=== PATIENT | female | born 1975 | race Caucasian/White ===

== ENCOUNTER 2018-12-27 23:26 | Emergency (ER) | payer SELFPAY ==
[2018-12-27 23:31] VITALS: BP 151/83; PULSE 87; RESP 16; TEMP 37; O2SAT 98
--- NOTE | 2018-12-27 23:45 | ED.GENADUL_ITS ---
Discharge Plan Disposition Patient Disposition: HOME Condition: Improving Discharge Details Chief Complaint: PsychEval Clinical Impression: Alcohol intoxication Primary Care Provider: Giovana Patel ED Provider: Mitch Quintana Home Meds and New Rx's Prescriptions: Continued trazodone 50 MG tablet 50 mg PO HS RF: 0 topiramate [Topamax] 25 MG tablet 50 mg PO BID RF: 0 omeprazole [Prilosec] 20 MG capsule,delayed release(DR/EC) 20 mg PO DAILY RF: 0 gabapentin 100 MG capsule 100 mg PO TID RF: 0 cetirizine [Zyrtec] 10 MG tablet,chewable 10 mg PO DAILY RF: 0 duloxetine [Cymbalta] 30 MG capsule,delayed release(DR/EC) 60 mg PO DAILY RF: 0 oxycodone [OxyContin] 20 MG tablet,oral only,ext.rel.12 hr 20 mg PO Q12H PRN RF: 0 SEVEN KETO DAILY RF: 0 tramadol 50 MG tablet 50 mg PO HS PRNRF: 0 bupropion HCl 100 MG tablet extended release 12 hr 100 mg PO DAILY RF: 0 bupropion HCl 100 MG tablet 100 mg PO DAILY RF: 0 medroxyprogesterone 150 MG/ML suspension 150 mg IM Q3M RF: 0 norethindrone acetate 5 MG tablet 5 mg PO . DIRECTED Qty: 50 RF: 0 Discharge Instructions Instructions: Alcohol Intoxication (ED) Additional Instructions: You are medically stable for discharge from the emergency department family member. Follow-up with [facility] human services tomorrow. Return for any acute concern Medical Decision Making 43-year-old female brought to the emerge department by state police officers. Her daughter had called him when the patient was intoxicated and making statements of wanting to self-harm. She states to me she had a great deal of anxiety and stress and her mood remains depressed. She admits both alcohol and marijuana use today. She is afebrile and well-appearing. She is noted to have blood pressure 151/83. Medical screening examination including breath alcohol testing performed. Alcohol level was 0.44. Patient seen by mental health screener. States she is no longer having thoughts of harming herself. Plan for outpatient safety was arranged and the patient was discharged home with her daughter. HPI General Mode of arrival: ambulatory . Date/Time Provider Initiated Documentation: 12/27/18 23:41 . Limitations to Documentation: no limitations . Information obtained by: patient . History of Present Illness 43 year old F presents to the emergency department with the chief complaint of Suicidal and intoxicated, described as moderate, Quality is described as constant, Patient started experiencing this hour(s) and it has been constant. No relieving factors improve symptom(s), No exacerbating factors reported . Patient notes no other symptoms.. Patient did receive the following treatments prior to arrival, none Related Data Home Medications Medication Instructions Recorded Confirmed Seven Keto DAILY 05/04/13 cetirizine [Zyrtec] 10 mg PO DAILY tab-cap 05/04/13 03/15/16 duloxetine [Cymbalta] 60 mg PO DAILY tab-cap 05/04/13 03/15/16 gabapentin 100 mg PO TID 05/04/13 omeprazole [Prilosec] 20 mg PO DAILY tab-cap 05/04/13 03/15/16 oxycodone [OxyContin] 20 mg PO Q12H PRN tab-cap 05/04/13 topiramate [Topamax] 50 mg PO BID tab-cap 05/04/13 03/15/16 trazodone 50 mg PO HS tab-cap 05/04/13 03/15/16 bupropion HCl 100 mg PO DAILY 03/15/16 03/15/16 bupropion HCl 100 mg PO DAILY 03/15/16 03/15/16 medroxyprogesterone 150 mg IM Q3M 03/15/16 03/15/16 norethindrone acetate 5 mg PO . DIRECTED #50 tab 03/15/16 tramadol 50 mg PO HS PRN 03/15/16 03/15/16 Previous Rx's Medication Instructions Recorded norethindrone acetate 5 mg PO . DIRECTED #50 tab 03/15/16 Allergies Allergy/AdvReac Type Severity Reaction Status Date / Time NSAIDS (Non-Steroidal Allergy Intermediate Unverified 03/15/16 10:38 Anti-Inflamma General Stated Complaint: PsychEval ESTRELLA: 2 Review of Systems Review of Systems 6 systems reviewed and otherwise negative PFSH Social History Smoking/Tobacco Use Status: Current every day Tobacco Type: cigarettes Alcohol Intake: current Alcohol type: other Drug use: Never Substance use type: former substance user and marijuana Details: first time drinking in month. Additional Social history: wants to hurt self. Exam Narrative Exam Narrative: GEN: awake, alert, interactive. Odor of alcohol HEAD: Normocephalic, atraumatic ENT: Mucous membranes moist, oropharynx unremarkable, External ear exam unremarkable EYES: PERRL, EOMI NECK: Full ROM, no DINORA, no menigismus CHEST/RESP: Nontender, clear to auscultation bilateral, no wheeze/rhonchi/rales CARDIOVASCULAR: RRR, no murmur, rub klarissa. 2+ Rad pulse bilateral ABDOMEN: Soft, nontender, no mass. +Bowel sounds EXT: Full ROM, no edema, no rash Neuro: Grossly normal neurologic exam, conversant, interactive. Psych: Speech fluent, thoughts congruent, affect anxious Course Vital Signs Temperature 37.0 C 12/27/18 23:31 Pulse 87 12/27/18 23:31 Respiratory Rate 16 12/27/18 23:31 Blood Pressure 151/83 H 12/27/18 23:31 Pulse Oximetry 98 12/27/18 23:31 Temperature 37.0 C 12/27/18 23:31 Temperature Source Temporal Artery Scan 12/27/18 23:31 Pulse 87 12/27/18 23:31 Respiratory Rate 16 12/27/18 23:31 Respiratory Effort 12/27/18 23:31 Blood Pressure 151/83 H 12/27/18 23:31 Pulse Oximetry 98 12/27/18 23:31 Oxygen Delivery Method Room Air 12/27/18 23:31 Oxygen Flow Rate 0 12/27/18 23:31
[2018-12-28 01:38] VITALS: BP 139/76; PULSE 87; RESP 19; TEMP 36.8; O2SAT 99
== END 2018-12-28 01:38 | disposition home or self-care (01) ==
PROVIDERS: Emergency Provider Emergency Medicine; PCP Physician Assistant Medical
DX: F10.129 Alcohol abuse with intoxication, unspecified (principal); F41.8 Other specified anxiety disorders; R45.851 Suicidal ideations; Y90.2 Blood alcohol level of 40-59 mg/100 ml; F17.210 Nicotine dependence, cigarettes, uncomplicated
CPT/HCPCS: 80053; 99285; 80320; 80329; 84443; 85025; 99283

== ENCOUNTER 2018-12-28 13:12 | Emergency (ER) | payer SELFPAY ==
[2018-12-28 13:17] VITALS: BP 124/67; PULSE 73; RESP 14; TEMP 37.1; O2SAT 100
[2018-12-28 14:05] LABS: Bilirubin Negative (Negative); Blood Negative (Negative); Clarity Clear; Glucose Negative (Negative); Ketones Negative (Negative); Leukocyte Esterase Negative (Negative); Nitrite Negative (Negative); Urobilinogen 0.2 EU/dL (Up TO 0.2); pH 6.5 (5-8)
[2018-12-28 14:14] LABS: Abs Immature Grans 0.07 k/cumm (0.0-0.09); Absolute Eosinophil Count 0.17 k/cumm (0.0-0.7); Absolute Monocyte Count 1.56 k/cumm (0.11-0.7); Absolute Neutrophil Count 8.92 k/cumm (1.2-6.7); Basophils % 0.5; Immature Grans % 0.4; Lymphocytes % 37.5; Mean Corp. HGB Concentration 34.1 g/dL (32.0-36.0); Mean Corpuscular Hemoglobin 29.6 pg (27.0-33.0); Mean Corpuscular Volume 86.8 fL (80-95); Mean Platelet Volume 9.7 fL (8.0-11.0); Neutrophils % 51.6; Platelet Count 305 x1000/uL (130-400); RBC 5.07 m/cumm (4.00-5.20); RBC Distribution Width 15.2 % (11.7-14.6); White Blood Cell Count 17.29 k/cumm (4.4-10.8)
[2018-12-28 14:19] LABS: *AMPHETAMINES SCREEN URINE Negative (Negative); *BARBITURATES SCREEN URINE Negative (Negative); *BENZODIAZEPINES SCREEN URINE Negative (Negative); Cannabinoids THC POSITIVE (Negative); Cocaine Screen,Urine Negative (Negative); METHADONE URINE SCREEN Negative (Negative); OPIATES URINE SCREEN Negative (Negative)
[2018-12-28 14:20] LABS: Tricyclic Antidepressants Negative (Negative)
[2018-12-28 14:31] LABS: Absolute Basophil Count 0.09 k/cumm (0.0-0.2); Absolute Lymphocyte Count 6.48 k/cumm (1.2-3.4)
[2018-12-28 14:39] LABS: Diff Comment Diff Reviewed; RBC Morphology Normal
[2018-12-28 14:43] LABS: ALT 16 U/L (12-78); AST 17 U/L (15-37); Albumin 3.8 g/dL (3.4-5.0); Alkaline Phosphatase 72 U/L (46-116); BUN 5 mg/dL (7-18); Bilirubin, Total 0.4 mg/dL (0.2-1.0); CREATININE 0.64 mg/dL (0.55-1.02); Calcium 8.9 mg/dL (8.5-10.1); Chloride 103 mmol/L (98-107); Glucose 82 mg/dL (70-100); Potassium 3.5 mmol/L (3.5-5.1); Sodium 138 mmol/L (136-145); TSH (W/Ref FT4) 1.37 uIU/mL (0.358-3.74); Total Protein 7.4 g/dL (6.4-8.2)
[2018-12-28 15:01] LABS: ETHANOL BLOOD < 3.0 mg/dL (<3)
--- NOTE | 2018-12-28 15:58 | PDOC.MHCN ---
Date of service: 12/28/18 Time of Service: 15:58 Mental Health Crisis Note Presenting Issue How did you arrive at the ED and why did you come: Patient's daughter brings her to the ER for a psych evaluation due to patient making suicidal statements yesterday while intoxicated. Precipitating Factors Patient denies current suicidal or homicidal ideation. She admits to having had intermittent thoughts of suicide over the past month and states that a few weeks ago she had a plan of jumping out in front of an [address] lee semi-truck. No truck came along, however, and the thoughts eventually went away. She reports lots of life stressors including a lack of health insurance and financial concerns as she has been unable to work for the past 3 years. In July of 2018, she applied for disability due to fibromyalgia and migraines and is awaiting a determination. She was formerly on various medications for her medical issues but can no longer afford the medications and cannot afford to see her primary care physician regularly. Disposition BEHAVIOR: Cooperative. EYE CONTACT: Good. MOOD: Depressed. AFFECT: Irritable. APPETITE: Poor - states she feels nauseated 95 % of the time so she is unable to eat. SLEEP(trouble falling/staying asleep: Poor - reports insomnia. Plan Patient does not meet criteria for involuntary hospitalization at this time and she refuses a voluntary placement. Patient is able to contract for safety, so she is being discharged home. Soraida, [facility] Store Keeper, will make a referral to [facility] so they can assist patient in exploring means of paying for doctor's visits and medications. Soraida will also outreach to patient's PCP, Giovana Patel, at [facility] on Saturday after the to ask that patient be scheduled for an appointment. Patient's and daughter are provided with contact information for [facility] emergency services and agree to call as needed. They also know to return patient to the ER if her suicidal ideation returns. Signature Clinician's Name/Title: Ivy Xie BA, [facility] Shelf Filler
--- NOTE | 2018-12-28 16:06 | PDOC.ERCMPRO ---
- If Service Date Differs Date of service: 12/31/18 Time of Service: 18:07 Care Management Progress Note S/O: CM consulted by [facility] patient arrived to the ED with a history of depression per report. Padma states that she has been unable to treat her depression due to lack of medical insurance. She states her spouses income is to high and she is unable to afford health insurance on her spouses insurance plan. CM referred patient to [facility] and contacted outreach person at the office. Padma does not qualify for medicaid and CM was referred back to [facility]'s primary care office for assistance. CM spoke with the nurse Palak at [facility] and she states the Clinical Coordinator is not present however she read the last notes. Pt was referred by practice to [facility] for assistance with medications. CM reviewed options for treatment including [facility] $4.00 prescriptions and access to [facility]. Palak will leave the message for [facility] to follow up as well as this writers contact information. Padma agrees to return home with her daughter and will contact PCP office to schedule visit and review prescriptions options. P: Padma will continue to work with [facility], stay with her daughter and reach out to primary care to follow up with her provider. CM will contact [facility] and fax information to PCP for follow up with the patient.
--- NOTE | 2018-12-28 16:22 | PDOC.MHCN_ITS ---
Date of service: 12/28/18 Time of Service: 15:58 Mental Health Crisis Note Presenting Issue How did you arrive at the ED and why did you come: Patient's daughter brings her to the ER for a psych evaluation due to patient making suicidal statements yesterday while intoxicated. Precipitating Factors Patient denies current suicidal or homicidal ideation. She admits to having had intermittent thoughts of suicide over the past month and states that a few weeks ago she had a plan of jumping out in front of an 18 lee semi-truck. No truck came along, however, and the thoughts eventually went away. She reports lots of life stressors including a lack of health insurance and financial concerns as she has been unable to work for the past 3 years. In July of 2018, she applied for disability due to fibromyalgia and migraines and is awaiting a determination. She was formerly on various medications for her medical issues but can no longer afford the medications and cannot afford to see her primary care physician regularly. Disposition BEHAVIOR: Cooperative. EYE CONTACT: Good. MOOD: Depressed. AFFECT: Irritable. APPETITE: Poor - states she feels nauseated 95 % of the time so she is unable to eat. SLEEP(trouble falling/staying asleep: Poor - reports insomnia. Plan Patient does not meet criteria for involuntary hospitalization at this time and she refuses a voluntary placement. Patient is able to contract for safety, so she is being discharged home. Soraida, [facility] Artists' Booking Representative, will make a referral to [facility] so they can assist patient in exploring means of paying for doctor's visits and medications. Soraida will also outreach to patient's PCP, Giovana Patel, at [facility] on Saturday after the to ask that patient be scheduled for an appointment. Patient's and daughter are provided with contact information for [facility] emergency services and agree to call as needed. They also know to return patient to the ER if her suicidal ideation returns. Signature Clinician's Name/Title: Ivy Xie BA, [facility] Correspondence Renew Clerk
--- NOTE | 2018-12-28 16:29 | W.ED.GENAD ---
Discharge Plan Disposition Patient Disposition: HOME Condition: Good Discharge Details Chief Complaint: PsychEval Clinical Impression: Depression, Leukocytosis Primary Care Provider: Giovana Patel ED Provider: Reji Fleming Home Meds and New Rx's Prescriptions: No Action trazodone 50 MG tablet 150 mg PO HS RF: 0 topiramate [Topamax] 25 MG tablet 50 mg PO BID RF: 0 omeprazole [Prilosec] 20 MG capsule,delayed release(DR/EC) 20 mg PO DAILY RF: 0 gabapentin 100 MG capsule 100 mg PO TID RF: 0 cetirizine [Zyrtec] 10 MG tablet,chewable 10 mg PO DAILY RF: 0 duloxetine [Cymbalta] 30 MG capsule,delayed release(DR/EC) 60 mg PO DAILY RF: 0 oxycodone [OxyContin] 20 MG tablet,oral only,ext.rel.12 hr 20 mg PO Q12H PRN RF: 0 SEVEN KETO DAILY RF: 0 tramadol 50 MG tablet 50 mg PO HS PRNRF: 0 bupropion HCl 100 MG tablet extended release 12 hr 100 mg PO DAILY RF: 0 bupropion HCl 100 MG tablet 100 mg PO DAILY RF: 0 medroxyprogesterone 150 MG/ML suspension 150 mg IM Q3M RF: 0 norethindrone acetate 5 MG tablet 5 mg PO . DIRECTED Qty: 50 RF: 0 promethazine 25 mg Tablet 25 PO PRN PRNRF: 0 Discharge Instructions Instructions: Depression (ED), Leukocytosis (ED) Additional Instructions: Please follow-up closely with your new primary care provider as well as your counseling services. If you have any thoughts of self-harm, please return immediately for reassessment. If you notice any worsening of your symptoms, or any new symptoms such as vomiting, diarrhea, fever, chills, shortness of breath, chest pain, numbness, weakness, or fainting , please return immediately to the emergency department for reevaluation. Please follow up with your primary care provider as soon as possible for reassessment and reevaluation. As always, it was a pleasure participating in your medical care today. Referrals: Giovana Patel PA [Primary Care Provider] - Discharge Data Discharge Date/Time-TO BE ENTERED AT DEPARTURE: 12/28/18 16:55 Medical Decision Making This is a pleasant 43-year-old female who presents today for evaluation of mental health assessment. She was seen last night was intoxicated, recommended that she come back for mental health reassessment. Currently she denies any homicidal or suicidal ideations. She does admit to feeling depressed though. She has no plan for self-harm. No concerning red flags. Patient would like help and would like to talk to mental health advisor though. A screening laboratory work-up was performed, no significant abnormalities except for mild leukocytosis. She has no fever, cough, bandemia, tachycardia, chest pain, shortness of breath, dysuria or hematuria. Patient has refused chest x-ray at this time stating that she does not want to occur additional cost. With no clinical symptoms of pneumonia, no signs of infection I feel her leukocytosis is most likely secondary to stress, and a recent alcohol binge. Mental health did come and evaluate the patient and feels that she is safe for discharge home. They have elicited the help of case management which is setting her up with [facility], insurance for her medications, and PCP for close follow-up in addition to a counselor. The patient feels very safe with this plan, as does her family who is at bedside. I have extensively reviewed the treatment plan and discharge instructions with the patient and their family. I have addressed all patient concerns at this time. The patient and family was made aware of what symptoms to monitor for that would warrant a return to the emergency department. Discussed the plan with the patient and family, they demonstrate verbal understanding and agreement with our assessment and plan at this time. HPI General Date/Time Provider Initiated Documentation: 12/28/18 13:24. HPI Narrative: This is a pleasant 43-year-old female who presents today for evaluation of mental health evaluation. She was seen and assessed last night, was intoxicated and eventually discharged with recommendations to return for reassessment. At this time she denies any homicidal or suicidal ideations. She does state that she feels notably depressed and that this is been the case for the last month. SHe denies any auditory or visual hallucinations, homicidal ideations, or plan for self-harm. She is not currently on any depression medications. She does have some insurance issues as she states. No other complaints at this time. No other modifying factors. She denies any history of previous self-harm or suicidal attempt. She denies any IV or illicit drug use, pertinent family history, family history of suicidality, or recent surgical history. Related Data Home Medications Medication Instructions Recorded Confirmed Seven Keto DAILY 05/04/13 cetirizine [Zyrtec] 10 mg PO DAILY tab-cap 05/04/13 12/28/18 duloxetine [Cymbalta] 60 mg PO DAILY tab-cap 05/04/13 12/28/18 gabapentin 100 mg PO TID 05/04/13 12/28/18 omeprazole [Prilosec] 20 mg PO DAILY tab-cap 05/04/13 12/28/18 oxycodone [OxyContin] 20 mg PO Q12H PRN tab-cap 05/04/13 12/28/18 topiramate [Topamax] 50 mg PO BID tab-cap 05/04/13 12/28/18 trazodone 150 mg PO HS tab-cap 05/04/13 12/28/18 bupropion HCl 100 mg PO DAILY 03/15/16 12/28/18 bupropion HCl 100 mg PO DAILY 03/15/16 12/28/18 medroxyprogesterone 150 mg IM Q3M 03/15/16 12/28/18 norethindrone acetate 5 mg PO . DIRECTED #50 tab 03/15/16 12/28/18 tramadol 50 mg PO HS PRN 03/15/16 12/28/18 promethazine 25 PO PRN PRN 12/28/18 Previous Rx's Medication Instructions Recorded norethindrone acetate 5 mg PO . DIRECTED #50 tab 03/15/16 Allergies Allergy/AdvReac Type Severity Reaction Status Date / Time NSAIDS (Non-Steroidal Allergy Intermediate Unverified 12/28/18 13:21 Anti-Inflamma General Stated Complaint: PsychEval ESTRELLA: 2 Review of Systems Review of Systems All systems reviewed & are unremarkable except as noted in HPI and below PFSH Social History Smoking/Tobacco Use Status: Current every day Tobacco Type: cigarettes Alcohol Intake: current Alcohol type: other Drug use: Never Substance use type: former substance user and marijuana Details: first time drinking in month. Do you feel safe at home: Yes Do you feel safe in your relationship?: Yes Additional Social history: wants to hurt self. Exam Narrative Exam Narrative: 1.Const: Well-nourished, Well-developed, appearing stated age 2.Eyes: PERRL, no conjunctival injection, and symmetrical lids. 3.ENT: Atraumatic external nose and ears. Moist MM. Neck: Symmetric, trachea midline, No thyromegaly. 4.CVS: +S1/S2, No murmurs or gallops. Peripheral pulses 2+ and equal in all extremities. Brisk capillary refill in all extremities. 5.RESP: Unlabored respiratory effort. Clear to auscultation bilaterally. No wheezes rales or rhonchi 6.GI: Soft, Nontender/Nondistended, No hepatosplenomegaly. No guarding or rebound. 7.MSK: Normocephalic/Atraumatic, Extremities w/o deformity or ttp No cyanosis or clubbing, Normal movement of all extremities 8.Skin: Warm, Dry. No rashes or lesions. 9.Neuro: staff readiness officer II-XII grossly intact. Sensation grossly intact, no focal neurologic deficits. 10.Psych: (AAO) x3. Appropriate mood and affect Course Vital Signs Temperature 37.1 C 12/28/18 13:17 Pulse 73 12/28/18 13:17 Respiratory Rate 14 12/28/18 13:17 Blood Pressure 124/67 12/28/18 13:17 Pulse Oximetry 100 12/28/18 13:17 Temperature 37.1 C 12/28/18 13:17 Temperature Source Temporal Artery Scan 12/28/18 13:17 Pulse 73 12/28/18 13:17 Respiratory Rate 14 12/28/18 13:17 Respiratory Effort Non-Labored 12/28/18 13:20 Blood Pressure 124/67 12/28/18 13:17 Blood Pressure Position Sitting 12/28/18 13:17 Pulse Oximetry 100 12/28/18 13:17 Oxygen Delivery Method Room Air 12/28/18 13:17 Oxygen Flow Rate 0 12/28/18 13:17 Pain Level 0 12/28/18 13:17 Lab/Test Results Lab/Test Results: Laboratory Tests Range/Units 12/28/18 12/28/18 12/28/18 13:52 13:52 14:07 WBC (4.4-10.8) k/cumm RBC (4.00-5.20) m/cumm Hgb (12.0-15.5) g/dL Hct (36.0-46.0) % MCV (80-95) fL MCH (27.0-33.0) pg MCHC (32.0-36.0) g/dL RDW (11.7-14.6) % Plt Count (130-400) x1000/uL MPV (8.0-11.0) fL Immature Gran % Neutrophils % Lymphocytes % Monocytes % Eosinophils % Basophils % Absolute Neutrophils (1.2-6.7) k/cumm Absolute Lymphocytes (1.2-3.4) k/cumm Absolute Monocytes (0.11-0.7) k/cumm Absolute Eosinophils (0.0-0.7) k/cumm Absolute Basophils (0.0-0.2) k/cumm Differential Comment RBC Morphology Sodium (136-145) mmol/L 138 Potassium (3.5-5.1) mmol/L 3.5 Chloride (98-107) mmol/L 103 Carbon Dioxide (21.0-32.0) mmol/L 22.0 Anion Gap (3-11) mmol/L 13.0 H BUN (7-18) mg/dL 5 L Creatinine (0.55-1.02) mg/dL 0.64 Estimated GFR/1.73 m2 (mL/min/1.73m2) >= 60.00 Glucose (70-100) mg/dL 82 Calcium (8.5-10.1) mg/dL 8.9 Total Bilirubin (0.2-1.0) mg/dL 0.4 AST (15-37) U/L 17 ALT (12-78) U/L 16 Alkaline Phosphatase (46-116) U/L 72 Total Protein (6.4-8.2) g/dL 7.4 Albumin (3.4-5.0) g/dL 3.8 TSH (0.358-3.74) uIU/mL 1.37 Urine Color (Yellow) Yellow Urine Clarity Clear Urine pH (5-8) 6.5 Ur Specific [place] (1.005-1.025) 1.010 Urine Protein (Negative) mg/dL Negative Urine Ketones (Negative) mg/dL Negative Urine Blood (Negative) Negative Urine Nitrite (Negative) Negative Urine Bilirubin (Negative) Negative Urine Urobilinogen (Up TO 0.2) EU/dL 0.2 Ur Leukocyte Esterase (Negative) Negative Urine Glucose (Negative) mg/dL Negative Urine Opiates Screen (Negative) Negative Urine Methadone Screen (Negative) Negative Ur Barbiturates Screen (Negative) Negative Ur Tricyclics Screen (Negative) Negative Ur Amphetamines Screen (Negative) Negative U Benzodiazepines Scrn (Negative) Negative Urine Cocaine Screen (Negative) Negative Ur THC Screen (Negative) Positive Ethyl Alcohol (<3) mg/dL < 3.0 Range/Units 12/28/18 14:07 WBC (4.4-10.8) k/cumm 17.29 H RBC (4.00-5.20) m/cumm 5.07 Hgb (12.0-15.5) g/dL 15.0 Hct (36.0-46.0) % 44.0 MCV (80-95) fL 86.8 MCH (27.0-33.0) pg 29.6 MCHC (32.0-36.0) g/dL 34.1 RDW (11.7-14.6) % 15.2 H Plt Count (130-400) x1000/uL 305 MPV (8.0-11.0) fL 9.7 Immature Gran % 0.4 Neutrophils % 51.6 Lymphocytes % 37.5 Monocytes % 9.0 Eosinophils % 1.0 Basophils % 0.5 Absolute Neutrophils (1.2-6.7) k/cumm 8.92 H Absolute Lymphocytes (1.2-3.4) k/cumm 6.48 H Absolute Monocytes (0.11-0.7) k/cumm 1.56 H Absolute Eosinophils (0.0-0.7) k/cumm 0.17 Absolute Basophils (0.0-0.2) k/cumm 0.09 Differential Comment Diff reviewed RBC Morphology Normal Sodium (136-145) mmol/L Potassium (3.5-5.1) mmol/L Chloride (98-107) mmol/L Carbon Dioxide (21.0-32.0) mmol/L Anion Gap (3-11) mmol/L BUN (7-18) mg/dL Creatinine (0.55-1.02) mg/dL Estimated GFR/1.73 m2 (mL/min/1.73m2) Glucose (70-100) mg/dL Calcium (8.5-10.1) mg/dL Total Bilirubin (0.2-1.0) mg/dL AST (15-37) U/L ALT (12-78) U/L Alkaline Phosphatase (46-116) U/L Total Protein (6.4-8.2) g/dL Albumin (3.4-5.0) g/dL TSH (0.358-3.74) uIU/mL Urine Color (Yellow) Urine Clarity Urine pH (5-8) Ur Specific [place] (1.005-1.025) Urine Protein (Negative) mg/dL Urine Ketones (Negative) mg/dL Urine Blood (Negative) Urine Nitrite (Negative) Urine Bilirubin (Negative) Urine Urobilinogen (Up TO 0.2) EU/dL Ur Leukocyte Esterase (Negative) Urine Glucose (Negative) mg/dL Urine Opiates Screen (Negative) Urine Methadone Screen (Negative) Ur Barbiturates Screen (Negative) Ur Tricyclics Screen (Negative) Ur Amphetamines Screen (Negative) U Benzodiazepines Scrn (Negative) Urine Cocaine Screen (Negative) Ur THC Screen (Negative) Ethyl Alcohol (<3) mg/dL POC- Test(urine) Negative
--- NOTE | 2018-12-31 18:16 | CMPROGNOTE_ITS ---
- If Service Date Differs Date of service: 12/31/18 Time of Service: 18:07 Care Management Progress Note S/O: CM consulted by [facility] patient arrived to the ED with a history of depression per report. Padma states that she has been unable to treat her depression due to lack of medical insurance. She states her spouses income is to high and she is unable to afford health insurance on her spouses insurance plan. CM referred patient to counts include 234 beds at the [facility] and contacted outreach person at the office. Padma does not qualify for medicaid and CM was referred back to [facility]'s primary care office for assistance. CM spoke with the nurse Palak at [facility] and she states the Clinical Coordinator is not present however she read the last notes. Pt was referred by practice to counts include 234 beds at the [facility] for assistance with medications. CM reviewed options for treatment including [facility] $4.00 prescriptions and access to [facility]. Palak will leave the message for CCC to follow up as well as this writers contact information. Padma agrees to return home with her daughter and will contact PCP office to schedule visit and review prescriptions options. P: Padma will continue to work with [facility], stay with her daughter and reach out to primary care to follow up with her provider. CM will contact counts include 234 beds at the [facility] and fax information to PCP for follow up with the patient.
== END 2018-12-28 16:55 | disposition home or self-care (01) ==
PROVIDERS: Emergency Provider Student in an Organized Health Care Education/Training Program; PCP Physician Assistant Medical
DX: F41.9 Anxiety disorder, unspecified (principal); D72.829 Elevated white blood cell count, unspecified
CPT/HCPCS: 80053; 80307; 81025; 99283; 80320; 81003; 84443; 85025

== ENCOUNTER 2018-12-31 18:05 | Emergency (ER) | payer SELFPAY ==
[2018-12-31 18:10] VITALS: BP 121/86; PULSE 75; RESP 14; TEMP 36.5; O2SAT 99
--- NOTE | 2018-12-31 18:27 | W.ED.GENAD ---
Discharge Plan Disposition Patient Disposition: [facility] Condition: Serious Discharge Details Chief Complaint: PsychEval Clinical Impression: Suicidal ideations Primary Care Provider: Giovana Patel ED Provider: Yadira Reed Home Meds and New Rx's Prescriptions: No Action trazodone 50 MG tablet 150 mg PO HS RF: 0 omeprazole [Prilosec] 20 MG capsule,delayed release(DR/EC) 20 mg PO DAILY RF: 0 cetirizine [Zyrtec] 10 MG tablet,chewable 10 mg PO DAILY RF: 0 promethazine 25 mg Tablet 25 PO PRN PRNRF: 0 hydroxyzine HCl 25 mg Tablet 25 mg PO QID PRNRF: 0 diclofenac potassium 25 mg Capsule 25 mg PO BID PRNRF: 0 Discharge Data Discharge Date/Time-TO BE ENTERED AT DEPARTURE: 01/01/19 13:18 Medical Decision Making <OMAR Shay - Last Filed: 01/01/19 14:51> Patient is a 43-year-old female presenting today with chief complaint of suicidal ideation. She was seen 2 days ago at which time she is having a depressive episode. Patient reports that she is been suicidal for the last month but has not been able to accept this patient she needs to have intervention until today. She is now volunteering to self to medical services for inpatient treatment. She reports that few weeks ago, she waited in front of traffic for approximately an hour and a half waiting for a large truck to jump in front of. States that she then tried to kill herself 2 nights ago at which time she was seen here but was not intoxicated state. Reports that if she was to go home now she would likely overdose. Patient is very teary and reports that she has had a multitude of social stressors at this point. She does have a supportive family member with her at this point. Will obtain screening labs and consult with mental health. Discussed this plan with the patient. UPT negative. Labs signficant for leukocytosis, this appears to be baseline for the patient. No evidence of infectious source at this time. UA significant for blood, patietn currently menstruating. Patient reports onset of headache. Requesting Aleve. It is written that she sleeps if inflammatory as patient reports that Aleve is tolerated well. At the end of my shift, care transition to Dr. Dale. Mental health advised that we are waiting callback from [facility] and [facility] both of them have beds available. Patient was stable overnight for Dr. Dale. Care transitioned back to vt with bed placement still pending. Patietn requesting her typical dosing of hydroxyzine. Spoke with Dr. Hubbard at [facility] who is agreed to accept the patient in transfer. Patient has remained voluntary, pleasant and stable since being here. Has had supportive family. Patient is agreement with transferring going to voluntary basis HPI <OMAR Shay - Last Filed: 01/01/19 14:51> General Mode of arrival: ambulatory. Date/Time Provider Initiated Documentation: 12/31/18 18:11. Limitations to Documentation: no limitations. Information obtained by: patient, family and RN notes reviewed. History of Present Illness 43 year old F presents to the emergency department with the chief complaint of suicidal ideation, described as severe, Patient started experiencing this month(s) (1) and it has been intermittent (increasing in frequency). No relieving factors improve symptom(s), Other factors that worsen symptoms (social stressors) . Patient notes headaches (endorses hx of migraines, none now), loss of appetite and other (fatigue, reports minimal sleep); denies confusion (denies hallucinations), chest pain, cough, diaphoresis, fever/chills, malaise, nausea/vomiting, rash, seizure, shortness of breath, syncope and weakness. Patient did receive the following treatments prior to arrival, none Related Data Home Medications Medication Instructions Recorded Confirmed cetirizine [Zyrtec] 10 mg PO DAILY tab-cap 05/04/13 12/31/18 omeprazole [Prilosec] 20 mg PO DAILY tab-cap 05/04/13 12/31/18 trazodone 150 mg PO HS tab-cap 05/04/13 12/31/18 promethazine 25 PO PRN PRN 12/28/18 diclofenac potassium 25 mg PO BID PRN 12/31/18 12/31/18 hydroxyzine HCl 25 mg PO QID PRN 12/31/18 12/31/18 Allergies Allergy/AdvReac Type Severity Reaction Status Date / Time NSAIDS (Non-Steroidal Allergy Intermediate Unverified 12/31/18 18:20 Anti-Inflamma General Stated Complaint: PsychEval ESTRELLA: 2 Review of Systems <OMAR Shay - Last Filed: 01/01/19 14:51> Constitutional Reports as per HPI, Denies chills, Denies fatigue, Denies fever(s), Denies headache(s) and Denies weakness Eyes Denies change in vision ENT Denies headache(s) Cardiovascular Reports as per HPI, Denies chest pain, Denies lightheadedness, Denies dyspnea and Denies dyspnea on exertion Respiratory Reports as per HPI, Denies cough, Denies dyspnea and Denies dyspnea on exertion Gastrointestinal Reports as per HPI, Denies abdominal pain, Denies change in bowel habits, Denies nausea and Denies vomiting Musculoskeletal Denies abnormal gait Integumentary/Breasts Reports as per HPI and Denies rash Neurologic Denies abnormal movements, Denies abnormal speech, Denies abnormal gait, Denies confusion, Denies headache(s), Denies paresthesias and Denies weakness Psychiatric Reports abnormal sleep pattern, Reports anxiety, Denies confusion, Reports depression, Denies auditory hallucinations, Reports hopelessness, Reports irritability, Reports mood swings, Denies panic attacks, Denies visual hallucinations, Denies hallucinations, Denies homicidal ideation and Reports suicidal ideation (plan to overdose) Endocrine Denies fatigue PFSH <OMAR Shay - Last Filed: 01/01/19 14:51> Medical History Fibromyalgia (Acute) Depression (Chronic) Social History Smoking/Tobacco Use Status: Current every day Tobacco Type: cigarettes Alcohol Intake: current Alcohol Intake frequency: holidays/special occasions only Alcohol type: other Drug use: Daily Substance use type: former substance user and marijuana Details: daily THC Do you feel safe at home: Yes Do you feel safe in your relationship?: Yes Additional Social history: wants to hurt self. Exam <OMAR Shay - Last Filed: 01/01/19 14:51> Const General: cooperative, healthy appearing, comfortable, well developed, well groomed, acute distress (tearing, anxious appearing) and anxious Nutritional Appearance: average body habitus and well nourished Orientation: alert and awake Eyes General: appearance normal, both eyes and all related structures Resp Effort & Inspection: normal respiratory effort, able to speak in complete sentences and no respiratory distress Auscultation: clear to auscultation bilaterally, no rales, no rhonchi and no wheezes Cardio Rate: regular rate Rhythm: regular rhythm Heart Sounds: S1 normal and S2 normal Skin General skin exam: no rashes or lesions noted Trauma: no lacerations or abrasions Neuro General: alert and awake Cognition: normal cognition Speech: speech normal Gait: normal gait Psych Appearance: grossly normal and well kempt Mental Status: mental status grossly normal Speech and Movement: speech and movement normal Mood: anxious mood Affect: sad Attitude: cooperative Thought Process: normal Thought Content: normal Insight: fair Judgment: poor Course <MOAR Shay - Last Filed: 01/01/19 14:51> Vital Signs Temperature 36.5 C 12/31/18 18:10 Pulse 75 12/31/18 18:10 Respiratory Rate 14 12/31/18 18:10 Blood Pressure 121/86 12/31/18 18:10 Pulse Oximetry 99 12/31/18 18:10 Temperature 36.5 C 12/31/18 18:10 Temperature Source Temporal Artery Scan 12/31/18 18:10 Pulse 75 12/31/18 18:10 Respiratory Rate 14 12/31/18 18:10 Respiratory Effort Non-Labored 12/31/18 18:18 Blood Pressure 121/86 12/31/18 18:10 Blood Pressure Position Sitting 12/31/18 18:10 Pulse Oximetry 99 12/31/18 18:10 Oxygen Delivery Method Room Air 12/31/18 18:10 Oxygen Flow Rate 0 12/31/18 18:10 Pain Level 0 12/31/18 18:10 Sign Out <OMAR Shay - Last Filed: 01/01/19 14:51> Sign Out Data: Sign Out Comment: Care transitioned to Dr. Dale with bed placement pending. Has been evaluated by TRISTA SAMSON, beds available at [facility] and [facility]. Voluntary. Last updated by Yadira Reed PA at 01/01/19 00:17 Sign Out Comment: Patient stable overnight. NicoDerm patch placed. She continues to be a voluntary pending placement. CPSO present. Signed back over to OMAR Shay. Last updated by Jos Dale MD at 01/01/19 08:11
--- NOTE | 2018-12-31 18:47 | ED.GENADUL_ITS ---
Discharge Plan Disposition Patient Disposition: [facility] Condition: Serious Discharge Details Chief Complaint: PsychEval Clinical Impression: Suicidal ideations Primary Care Provider: Giovana Patel ED Provider: Yadira Reed Home Meds and New Rx's Prescriptions: No Action trazodone 50 MG tablet 150 mg PO HS RF: 0 omeprazole [Prilosec] 20 MG capsule,delayed release(DR/EC) 20 mg PO DAILY RF: 0 cetirizine [Zyrtec] 10 MG tablet,chewable 10 mg PO DAILY RF: 0 promethazine 25 mg Tablet 25 PO PRN PRNRF: 0 hydroxyzine HCl 25 mg Tablet 25 mg PO QID PRNRF: 0 diclofenac potassium 25 mg Capsule 25 mg PO BID PRNRF: 0 Discharge Data Discharge Date/Time-TO BE ENTERED AT DEPARTURE: 01/01/19 13:18 Medical Decision Making <OMAR Shay - Last Filed: 01/01/19 14:51> Patient is a 43-year-old female presenting today with chief complaint of suicidal ideation. She was seen 2 days ago at which time she is having a depressive episode. Patient reports that she is been suicidal for the last month but has not been able to accept this patient she needs to have intervention until today. She is now volunteering to self to medical services for inpatient treatment. She reports that few weeks ago, she waited in front of traffic for approximately an hour and a half waiting for a large truck to jump in front of. States that she then tried to kill herself 2 nights ago at which time she was seen here but was not intoxicated state. Reports that if she was to go home now she would likely overdose. Patient is very teary and reports that she has had a multitude of social stressors at this point. She does have a supportive family member with her at this point. Will obtain screening labs and consult with mental health. Discussed this plan with the patient. UPT negative. Labs signficant for leukocytosis, this appears to be baseline for the patient. No evidence of infectious source at this time. UA significant for blood, patietn currently menstruating. Patient reports onset of headache. Requesting Aleve. It is written that she sleeps if inflammatory as patient reports that Aleve is tolerated well. At the end of my shift, care transition to Dr. Dale. Mental health advised that we are waiting callback from [facility] them have beds available. Patient was stable overnight for Dr. Dale. Care transitioned back to co with bed placement still pending. Patietn requesting her typical dosing of hydroxyzine. Spoke with Dr. Hubbard at [facility] who is agreed to accept the patient in transfer. Patient has remained voluntary, pleasant and stable since being here. Has had supportive family. Patient is agreement with transferring going to voluntary basis HPI <OMAR Shay - Last Filed: 01/01/19 14:51> General Mode of arrival: ambulatory . Date/Time Provider Initiated Documentation: 12/31/18 18:11 . Limitations to Documentation: no limitations . Information obtained by: patient, family and RN notes reviewed . History of Present Illness 43 year old F presents to the emergency department with the chief complaint of suicidal ideation, described as severe, Patient started experiencing this month(s) (1) and it has been intermittent (increasing in frequency). No relieving factors improve symptom(s), Other factors that worsen symptoms (social stressors) . Patient notes headaches (endorses hx of migraines, none now), loss of appetite and other (fatigue, reports minimal sleep); denies confusion (denies hallucinations), chest pain, cough, diaphoresis, fever/chills, malaise, nausea/vomiting, rash, seizure, shortness of breath, syncope and weakness. Patient did receive the following treatments prior to arrival, none Related Data Home Medications Medication Instructions Recorded Confirmed cetirizine [Zyrtec] 10 mg PO DAILY tab-cap 05/04/13 12/31/18 omeprazole [Prilosec] 20 mg PO DAILY tab-cap 05/04/13 12/31/18 trazodone 150 mg PO HS tab-cap 05/04/13 12/31/18 promethazine 25 PO PRN PRN 12/28/18 diclofenac potassium 25 mg PO BID PRN 12/31/18 12/31/18 hydroxyzine HCl 25 mg PO QID PRN 12/31/18 12/31/18 Allergies Allergy/AdvReac Type Severity Reaction Status Date / Time NSAIDS (Non-Steroidal Allergy Intermediate Unverified 12/31/18 18:20 Anti-Inflamma General Stated Complaint: PsychEval ESTRELLA: 2 Review of Systems <OMAR Shay - Last Filed: 01/01/19 14:51> Constitutional Reports as per HPI, Denies chills, Denies fatigue, Denies fever(s), Denies headache(s) and Denies weakness Eyes Denies change in vision ENT Denies headache(s) Cardiovascular Reports as per HPI, Denies chest pain, Denies lightheadedness, Denies dyspnea a nd Denies dyspnea on exertion Respiratory Reports as per HPI, Denies cough, Denies dyspnea and Denies dyspnea on exertion Gastrointestinal Reports as per HPI, Denies abdominal pain, Denies change in bowel habits, Denies nausea and Denies vomiting Musculoskeletal Denies abnormal gait Integumentary/Breasts Reports as per HPI and Denies rash Neurologic Denies abnormal movements, Denies abnormal speech, Denies abnormal gait, Denies confusion, Denies headache(s), Denies paresthesias and Denies weakness Psychiatric Reports abnormal sleep pattern, Reports anxiety, Denies confusion, Reports depression, Denies auditory hallucinations, Reports hopelessness, Reports irritability, Reports mood swings, Denies panic attacks, Denies visual hallucinations, Denies hallucinations, Denies homicidal ideation and Reports suicidal ideation (plan to overdose) Endocrine Denies fatigue PFSH <OMAR Shay - Last Filed: 01/01/19 14:51> Medical History Fibromyalgia (Acute) Depression (Chronic) Social History Smoking/Tobacco Use Status: Current every day Tobacco Type: cigarettes Alcohol Intake: current Alcohol Intake frequency: holidays/special occasions only Alcohol type: other Drug use: Daily Substance use type: former substance user and marijuana Details: daily THC Do you feel safe at home: Yes Do you feel safe in your relationship?: Yes Additional Social history: wants to hurt self. Exam <OMAR Shay - Last Filed: 01/01/19 14:51> Const General: cooperative, healthy appearing, comfortable, well developed, well groomed, acute distress (tearing, anxious appearing) and anxious Nutritional Appearance: average body habitus and well nourished Orientation: alert and awake Eyes General: appearance normal, both eyes and all related structures Resp Effort & Inspection: normal respiratory effort, able to speak in complete se ntences and no respiratory distress Auscultation: clear to auscultation bilaterally, no rales, no rhonchi and no wheezes Cardio Rate: regular rate Rhythm: regular rhythm Heart Sounds: S1 normal and S2 normal Skin General skin exam: no rashes or lesions noted Trauma: no lacerations or abrasions Neuro General: alert and awake Cognition: normal cognition Speech: speech normal Gait: normal gait Psych Appearance: grossly normal and well kempt Mental Status: mental status grossly normal Speech and Movement: speech and movement normal Mood: anxious mood Affect: sad Attitude: cooperative Thought Process: normal Thought Content: normal Insight: fair Judgment: poor Course <OMAR Shay - Last Filed: 01/01/19 14:51> Vital Signs Temperature 36.5 C 12/31/18 18:10 Pulse 75 12/31/18 18:10 Respiratory Rate 14 12/31/18 18:10 Blood Pressure 121/86 12/31/18 18:10 Pulse Oximetry 99 12/31/18 18:10 Temperature 36.5 C 12/31/18 18:10 Temperature Source Temporal Artery Scan 12/31/18 18:10 Pulse 75 12/31/18 18:10 Respiratory Rate 14 12/31/18 18:10 Respiratory Effort Non-Labored 12/31/18 18:18 Blood Pressure 121/86 12/31/18 18:10 Blood Pressure Position Sitting 12/31/18 18:10 Pulse Oximetry 99 12/31/18 18:10 Oxygen Delivery Method Room Air 12/31/18 18:10 Oxygen Flow Rate 0 12/31/18 18:10 Pain Level 0 12/31/18 18:10 Sign Out <OMAR Shay - Last Filed: 01/01/19 14:51> Sign Out Data: Sign Out Comment: Care transitioned to Dr. Dale with bed placement pending. Has been evaluated by NENori SAMSON, [facility] available [facility]. Voluntary. Last updated by Yadira Reed PA at 01/01/19 00:17 Sign Out Comment: Patient stable overnight. NicoDerm patch placed. She continues to be a voluntary pending placement. CPSO present. Signed back over to OMAR Shay. Last updated by Jos Dale MD at 01/01/19 08:11
[2018-12-31 19:05] LABS: Bilirubin Negative (Negative); Blood Moderate (Negative); Clarity Clear; Glucose Negative (Negative); Ketones Negative (Negative); Leukocyte Esterase Negative (Negative); Nitrite Negative (Negative); Specific Gravity <= 1.005 (1.005-1.025); Urobilinogen 0.2 EU/dL (Up TO 0.2)
[2018-12-31 19:15] LABS: Bacteria Negative HPF (Negative); C & S Indicated? No; Casts Negative LPF (Negative); Crystals Negative HPF (Negative); Epithelial Cells Few HPF (Negative); Mucus Negative (Negative); Other Cells Negative (Negative); WBC Negative HPF (0-5)
[2018-12-31 19:22] LABS: *AMPHETAMINES SCREEN URINE Negative (Negative); *BARBITURATES SCREEN URINE Negative (Negative); *BENZODIAZEPINES SCREEN URINE Negative (Negative); Cannabinoids THC POSITIVE (Negative); Cocaine Screen,Urine Negative (Negative); METHADONE URINE SCREEN Negative (Negative); OPIATES URINE SCREEN Negative (Negative)
[2018-12-31 19:49] LABS: Tricyclic Antidepressants Negative (Negative)
[2018-12-31 19:52] LABS: Abs Immature Grans 0.03 k/cumm (0.0-0.09); Absolute Basophil Count 0.08 k/cumm (0.0-0.2); Absolute Lymphocyte Count 5.89 k/cumm (1.2-3.4); Absolute Monocyte Count 1.53 k/cumm (0.11-0.7); Basophils % 0.5; Eosinophils % 1.3; HCT 43.7 % (36.0-46.0); HGB 15.2 g/dL (12.0-15.5); Immature Grans % 0.2; Mean Corp. HGB Concentration 34.8 g/dL (32.0-36.0); Mean Corpuscular Hemoglobin 30.2 pg (27.0-33.0); Mean Corpuscular Volume 86.7 fL (80-95); Mean Platelet Volume 9.9 fL (8.0-11.0); Monocytes % 9.6; Neutrophils % 51.4; Platelet Count 305 x1000/uL (130-400); RBC 5.04 m/cumm (4.00-5.20); RBC Distribution Width 14.8 % (11.7-14.6); White Blood Cell Count 15.92 k/cumm (4.4-10.8)
[2018-12-31 20:06] LABS: Absolute Eosinophil Count 0.21 k/cumm (0.0-0.7); Absolute Neutrophil Count 8.18 k/cumm (1.2-6.7)
[2018-12-31 20:10] LABS: ALT 16 U/L (12-78); AST 14 U/L (15-37); Albumin 3.8 g/dL (3.4-5.0); Alkaline Phosphatase 62 U/L (46-116); Anion Gap 10.2 mmol/L (3-11); BUN 5 mg/dL (7-18); Bilirubin, Total 0.4 mg/dL (0.2-1.0); CO2 22.8 mmol/L (21.0-32.0); Calcium 9.2 mg/dL (8.5-10.1); Chloride 104 mmol/L (98-107); Glucose 93 mg/dL (70-100); Potassium 3.7 mmol/L (3.5-5.1); Sodium 137 mmol/L (136-145); TSH 1.19 uIU/mL (0.358-3.74); Total Protein 7.3 g/dL (6.4-8.2)
[2018-12-31 20:13] LABS: Diff Comment Diff Reviewed; RBC Morphology Normal
[2018-12-31 20:17] LABS: ETHANOL BLOOD < 3.0 mg/dL (<3)
--- NOTE | 2018-12-31 20:18 | PDOC.ERCMPRO ---
- If Service Date Differs Date of service: 12/31/18 Time of Service: 20:18 Care Management Progress Note Mary has been to the ED three times this week. She was discharged home on 12/28/18 with a safety plan and with her daughters support. She returns to the ED today with complains of suicidal ideation. CM met with Padma and her spouse Jay in the room she is alert and engaged with CM. Padma states it is okay to speak with her while Jay is present. She states she is ready for help to manage her symptoms of depression. She states she has been unable to obtain medication to manage her symptoms due to no health insurance. She admits to being suicidal she reports to the provider her plan would be to overdose. At this time she remains voluntary and is requesting hospitalization. CM reviewed the safety plan with the Padma and she agrees to plan. VOLUNTARY FOR INPATIENT PSYCHIATRIC STABILIZATION. Patient is appropriate in all interactions since arriving at [facility]; Pt has demonstrated appropriate coping and communication skills, has articulated his or her needs and concerns and is fully engaged during staff interactions. Safety plan has been established with patient, and care team, to adhere to patient goals, identify restrictions based on behavioral status, address nutrition, and determine allowed personal belongings, tools for hygiene and personal care. Determine level of activity including ambulation, level of supervision, visitors, and determine privileges based on behaviors and level of engagement by pt. Huddle included: DAVID Reeves network control operators supervisor, [facility] ED provider, MAXIMO Haynes Sarah Primary RN and DAVID Quigley CM SAFETY PLAN: 1. Will remain on suicide precautions. In Paper Clothes 2. Will remain in room under direct supervision of one-on-one staff at all times provided by CPSO; DONALD, TRACI desktop support technician. 3. May have paper cups, plates, finger foods as well as a metal spoon with which to eat meals. [facility] staff will be responsible for accounting of utensils after meals. 4. Follow [facility] Management of the Admitted Behavioral Health Patient policy. 5. Comfort bath system or shower with [facility] supervision 6. No personal belongings in the room 7. Visitors- Spouse Jay and daughters Bambi and Deanna may visit, one at a time. 8. Activities: Music therapy, coloring books, crayons, television if one is available with the remote. 9. Bathroom privileges escorted to and from by CPSO 10. Phone: none: No cell phone at this time 11. Due to VOLUNTARY status, if patient wishes to leave [facility], the [facility] dairy farm worker must be contacted to re-evaluate patient prior to patient exiting the building. Plan: [facility] has contacted [facility] both are reviewing referral. Ivy will contact [place] as well. If a bed is identified [facility] will be transported down by expressive therapist coordinated by [facility]. Pateint and Spouse are aware of the plan and in agreement. Patient is currently voluntarily awaiting psychiatric placement for stabilization at [facility] and seeking inpatient admission when a bed becomes available. [facility] Frontline Lower In Supervisor will continue seeking placement. Please contact the Director Of Annual Giving Competitive Athlete ([phone]) and [facility] Lower In Supervisor ([phone]) for any needed changes in the Safety Plan. Safety plan has been provided to interdepartmental care team.
[2018-12-31 20:20] LABS: Acetaminophen < 2 ug/mL (10-30); Salicylate 6.3 mg/dL (2.8-20.0)
--- NOTE | 2018-12-31 20:21 | CMPROGNOTE_ITS ---
- If Service Date Differs Date of service: 12/31/18 Time of Service: 20:18 Care Management Progress Note Mary has been to the ED three times this week. She was discharged home on 12/28/18 with a safety plan and with her daughters support. She returns to the ED today with complains of suicidal ideation. CM met with Padma and her spouse Jay in the room she is alert and engaged with CM. Padma states it is okay to speak with her while Jay is present. She states she is ready for help to manage her symptoms of depression. She states she has been unable to obtain medication to manage her symptoms due to no health insurance. She admits to being suicidal she reports to the provider her plan would be to overdose. At this time she remains voluntary and is requesting hospitalization. CM reviewed the safety plan with the Padma and she agrees to plan. VOLUNTARY FOR INPATIENT PSYCHIATRIC STABILIZATION. Patient is appropriate in all interactions since arriving at [facility]; Pt has demonstrated appropriate coping and communication skills, has articulated his or her needs and concerns and is fully engaged during staff interactions. Safety plan has been established with patient, and care team, to adhere to patient goals, identify restrictions based on behavioral status, address nutrition, and determine allowed personal belongings, tools for hygiene and personal care. Determine level of activity including ambulation, level of supervision, visitors, and determine privileges based on behaviors and level of engagement by pt. Huddle included: DAVID Reeves paramedic supervisor, [facility] ED provider, MAXIMO Haynes Sarah Primary RN and DAVID Quigley CM SAFETY PLAN: 1. Will remain on suicide precautions. In Paper Clothes 2. Will remain in room under direct supervision of one-on-one staff at all times provided by CPSO; DONALD, TRACI ballast inspector. 3. May have paper cups, plates, finger foods as well as a metal spoon with which to eat meals. [facility] staff will be responsible for accounting of utensils after meals. 4. Follow [facility] Management of the Admitted Behavioral Health Patient policy. 5. Comfort bath system or shower with [facility] supervision 6. No personal belongings in the room 7. Visitors- Spouse Jay and daughters Bambi and Deanna may visit, one at a time. 8. Activities: Music therapy, coloring books, crayons, television if one is available with the remote. 9. Bathroom privileges escorted to and from by CPSO 10. Phone: none: No cell phone at this time 11. Due to VOLUNTARY status, if patient wishes to leave [facility], the [facility] lease out worker must be contacted to re-evaluate patient prior to patient exiting the building. Plan: [facility] has contacted [facility] and [facility] both are reviewing referral. Ivy will contact [place] as well. If a bed is identified [facility] will be transported down by coffee blender coordinated by [facility]. Pateint and Spouse are aware of the plan and in agreement. Patient is currently voluntarily awaiting psychiatric placement for stabilization at [facility] and seeking inpatient admission when a bed becomes available. [facility] Frontline Marine Welder will continue seeking placement. Please contact the Cartridge Loading Operator Security Field Supervisor ([phone]) and [facility] Marine Welder ([phone]) for any needed changes in the Safety Plan. Safety plan has been provided to interdepartmental care team.
[2019-01-01] MEDS: Nicotine 21 MG/24 HR PATCH TD (01:19)
--- NOTE | 2019-01-01 06:44 | NUR.NOTE ---
patient declining breakfast. requesting coffee only. cpso in doorway monitoring. in recliner in room.
--- NOTE | 2019-01-01 08:13 | PDOC.ERCMPRO ---
Care Management Progress Note 01/01-Ivy from [facility] called and stated that she spoke with [facility] this morning. [facility] needs to have casework supervisor approval before accepting. [facility] stated they would call Ivy back. Ivy is also reaching out to [facility] and will update this CM if new information. Ivy will be here around 9 am if she has not heard back from either hospital by then. Dr. Quintana updated on the above.
--- NOTE | 2019-01-01 08:17 | CMPROGNOTE_ITS ---
Care Management Progress Note 01/01-Ivy from [facility] called and stated that she spoke with [facility] this morning. [facility] needs to have metal extrusion supervisor approval before accepting. [facility] stated they would call Ivy back. Ivy is also reaching out to [facility] and will update this CM if new information. Ivy will be here around 9 am if she has not heard back from either hospital by then. Dr. Quintana updated on the above.
[2019-01-01] MEDS: hydrOXYzine HCL 25 MG TAB PO (08:35)
--- NOTE | 2019-01-01 08:38 | NUR.NOTE ---
patient sitting in bed quietly. cpso in doorway.:
--- NOTE | 2019-01-01 09:45 | NUR.NOTE ---
patient resting comfortably in bed. cpso observing in doorway.
--- NOTE | 2019-01-01 11:09 | NUR.NOTE ---
patient alert and oriented, cooperative, conversing with staff. ordering lunch. cpso monitoring patient from doorway.
--- NOTE | 2019-01-01 11:16 | NUR.NOTE ---
[facility] has accepted patient. currently waiting on the MD to MD talk.
--- NOTE | 2019-01-01 11:37 | PDOC.ERCMPRO ---
Care Management Progress Note [id number]-Rcmlkrcb, [facility], notified this CM that patient was accepted at [facility]. Currently waiting on physician to physician report. Patient will be transferred by [facility] when ready. Notified Robbin and he will give the community services coordinator's department a heads up. OMAR May is aware and in agreement with the above.
--- NOTE | 2019-01-01 11:38 | CMPROGNOTE_ITS ---
Care Management Progress Note [id number]-Pqahpaxl, [facility], notified this CM that patient was accepted at [facility]. Currently waiting on physician to physician report. Patient will be transferred by [facility] when ready. Notified Robbin and he will give the revenue integrity analyst's department a heads up. OMAR May is aware and in agreement with the above.
--- NOTE | 2019-01-01 12:28 | PDOC.MHCN ---
Date of service: 01/01/19 Time of Service: 12:28 Mental Health Crisis Note Presenting Issue How did you arrive at the ED and why did you come: Mary remains at [facility] awaiting a psych placement. She presented in the ER last evening due to suicidal ideation with plan. Precipitating Factors Mary continues to struggle with depression. She reports ongoing SI and states that she is ready to get help. Disposition BEHAVIOR: Cooperative. EYE CONTACT: Good. MOOD: Depressed. AFFECT: Sad. APPETITE: Reported as poor. SLEEP(trouble falling/staying asleep: Poor. Plan [facility] accepts Mary for admission. Transport will be done via shop assistant. Signature Clinician's Name/Title: Ivy Xie BA [facility] Advertising Account Representative
[2019-01-01 12:31] VITALS: BP 118/78; PULSE 60; RESP 16; TEMP 36.6; O2SAT 98
--- NOTE | 2019-01-01 12:33 | PDOC.MHCN_ITS ---
Date of service: 01/01/19 Time of Service: 12:28 Mental Health Crisis Note Presenting Issue How did you arrive at the ED and why did you come: Mary remains at [facility] awaiting a psych placement. She presented in the ER last evening due to suicidal ideation with plan. Precipitating Factors Mary continues to struggle with depression. She reports ongoing SI and states that she is ready to get help. Disposition BEHAVIOR: Cooperative. EYE CONTACT: Good. MOOD: Depressed. AFFECT: Sad. APPETITE: Reported as poor. SLEEP(trouble falling/staying asleep: Poor. Plan [facility] accepts Mary for admission. Transport will be done via groundskeeping maintenance worker. Signature Clinician's Name/Title: Ivy Xie BA [facility] Steam Cleaning Machine Operator
== END 2019-01-01 13:18 | disposition short-term general hospital (02) ==
PROVIDERS: Emergency Provider Physician Assistant; PCP Physician Assistant Medical
DX: F32.9 Major depressive disorder, single episode, unspecified (principal); R45.851 Suicidal ideations
CPT/HCPCS: 36415; 80053; 80307; 99285; 80320; 80329; 81003; 81015; 84443; 85025; 99284

== ENCOUNTER 2019-04-16 10:30 | Outpatient (REF) | payer SELFPAY ==
[2019-04-16 21:57] LABS: Abs Immature Grans 0.03 k/cumm (0.0-0.09); Absolute Basophil Count 0.08 k/cumm (0.0-0.2); Absolute Eosinophil Count 0.17 k/cumm (0.0-0.7); Absolute Lymphocyte Count 4.17 k/cumm (1.2-3.4); Absolute Monocyte Count 1.19 k/cumm (0.11-0.7); Absolute Neutrophil Count 5.37 k/cumm (1.2-6.7); Basophils % 0.7; Eosinophils % 1.5; HCT 44.3 % (36.0-46.0); HGB 14.5 g/dL (12.0-15.5); Immature Grans % 0.3; Lymphocytes % 37.9; Mean Corp. HGB Concentration 32.7 g/dL (32.0-36.0); Mean Corpuscular Hemoglobin 28.5 pg (27.0-33.0); Mean Corpuscular Volume 87.2 fL (80-95); Mean Platelet Volume 11.2 fL (8.0-11.0); Monocytes % 10.8; Neutrophils % 48.8; Platelet Count 260 x1000/uL (130-400); RBC 5.08 m/cumm (4.00-5.20); RBC Distribution Width 15.5 % (11.7-14.6); White Blood Cell Count 11.01 k/cumm (4.4-10.8)
== END 2019-04-16 10:50 ==
LOC: NCHCN 10:30
PROVIDERS: PCP Physician Assistant Medical; Visit Provider Nurse Practitioner Psychiatric/Mental Health
DX: F39 Unspecified mood [affective] disorder (principal)
CPT/HCPCS: 85025

== ENCOUNTER 2019-04-17 11:10 | Outpatient (REF) | payer SELFPAY ==
[2019-04-17 20:13] LABS: VALPROIC ACID 59.7 ug/mL (50-100)
== END 2019-04-17 11:30 ==
LOC: NCHCN 11:10
PROVIDERS: PCP Physician Assistant Medical; Visit Provider Nurse Practitioner Psychiatric/Mental Health
DX: F39 Unspecified mood [affective] disorder (principal); Z51.81 Encounter for therapeutic drug level monitoring; Z79.899 Other long term (current) drug therapy
CPT/HCPCS: 80164

== ENCOUNTER 2019-05-19 01:40 | Outpatient (CLI) | payer OTHER, SELFPAY ==
--- NOTE | 2019-05-19 09:00 | DI.RAD_ITS ---
EXAM: XR LUMBAR SPINE AP, LAT INDICATION: DEGENERATIVE DISC DISEASE, BACK PAIN. COMPARISON: SACRUM COCCYX from 10/16/2013 TECHNIQUE: 2D digital imaging was performed. FINDINGS: Two views were obtained. The intervertebral disc spaces appear well maintained. No fracture identif ied. Mild degenerative changes noted involving facet joints and, to a lesser degree, vertebral endpl ates. IMPRESSION: Minimal DJD of the lumbar spine.
== END 2019-05-19 02:00 ==
PROVIDERS: PCP Physician Assistant Medical; Visit Provider Pediatrics Pediatric Rheumatology
DX: M54.5 Low back pain (principal); M53.3 Sacrococcygeal disorders, not elsewhere classified; M47.816 Spondylosis without myelopathy or radiculopathy, lumbar region
CPT/HCPCS: 72100

== ENCOUNTER 2019-07-24 09:36 | Outpatient (REF) | payer SELFPAY ==
[2019-07-24 19:16] LABS: Abs Immature Grans 0.02 k/cumm (0.0-0.09); Absolute Basophil Count 0.09 k/cumm (0.0-0.2); Absolute Eosinophil Count 0.22 k/cumm (0.0-0.7); Absolute Lymphocyte Count 3.17 k/cumm (1.2-3.4); Absolute Monocyte Count 1.07 k/cumm (0.11-0.7); Absolute Neutrophil Count 5.45 k/cumm (1.2-6.7); Basophils % 0.9; Eosinophils % 2.2; HCT 44.1 % (36.0-46.0); HGB 14.6 g/dL (12.0-15.5); Immature Grans % 0.2; Lymphocytes % 31.6; Mean Corp. HGB Concentration 33.1 g/dL (32.0-36.0); Mean Corpuscular Hemoglobin 30.1 pg (27.0-33.0); Mean Corpuscular Volume 90.9 fL (80-95); Mean Platelet Volume 10.4 fL (8.0-11.0); Monocytes % 10.7; Neutrophils % 54.4; Platelet Count 278 x1000/uL (130-400); RBC 4.85 m/cumm (4.00-5.20); RBC Distribution Width 15.6 % (11.7-14.6); White Blood Cell Count 10.02 k/cumm (4.4-10.8)
[2019-07-24 19:39] LABS: ALT 22 U/L (14-59); AST 16 U/L (15-37)
[2019-07-24 19:41] LABS: VALPROIC ACID 30.7 ug/mL (50-100)
== END 2019-07-24 09:56 ==
LOC: NCHCN 09:36
PROVIDERS: PCP Physician Assistant Medical; Visit Provider Nurse Practitioner Psychiatric/Mental Health
DX: F31.75 Bipolar disorder, in partial remission, most recent episode depressed (principal); Z51.81 Encounter for therapeutic drug level monitoring; Z79.899 Other long term (current) drug therapy
CPT/HCPCS: 80164; 84450; 84460; 85025

== ENCOUNTER 2020-04-12 17:36 | Outpatient (REF) | payer SELFPAY ==
[2020-04-12 19:23] LABS: Abs Immature Grans 0.02 10^3/uL (0.0-0.06); Absolute Basophil Count 0.09 10^3/uL (0.0-0.2); Absolute Eosinophil Count 0.17 10^3/uL (0.0-0.7); Absolute Lymphocyte Count 4.15 10^3/uL (1.2-3.4); Absolute Monocyte Count 0.83 10^3/uL (0.1-0.8); Absolute Neutrophil Count 3.89 10^3/uL (1.2-6.7); Eosinophils % 1.9; HCT 41.2 % (36.0-46.0); HGB 13.7 g/dL (11.2-15.7); Immature Grans % 0.2; Lymphocytes % 45.4; MCH 29.8 pg (27.0-33.0); MCHC 33.3 % (32.0-36.0); MCV 89.8 fL (80-95); MPV 10.7 fL (8.0-11.0); Monocytes % 9.1; Neutrophils % 42.4; Nucleated RBC 0 %; Platelet Count 234 10^3/uL (130-400); RBC 4.59 10^6/uL (3.93-5.22); RDW 13.6 % (11.7-14.6); RDW-SD 45.1 fL; WBC 9.15 10^3/uL (4.4-10.8)
[2020-04-12 19:45] LABS: ALT 13 U/L (14-59); AST 14 U/L (15-37); Albumin 3.3 g/dL (3.4-5.0); Alkaline Phosphatase 49 U/L (46-116); Bilirubin, Direct 0.06 mg/dL (0.00-0.20); Bilirubin, Total 0.3 mg/dL (0.2-1.0); TSH (W/Ref FT4) 1.72 uIU/mL (0.36-3.74); Total Protein 6.4 g/dL (6.4-8.2)
[2020-04-12 19:47] LABS: VALPROIC ACID 68.2 ug/mL (50-100)
[2020-04-14 07:06] LABS: Vitamin D 25 Total 34.9 ng/ml (30-100)
== END 2020-04-12 17:56 ==
LOC: NCHCN 17:36
PROVIDERS: PCP Physician Assistant Medical; Visit Provider Nurse Practitioner Psychiatric/Mental Health
DX: F31.75 Bipolar disorder, in partial remission, most recent episode depressed (principal); Z79.899 Other long term (current) drug therapy; Z51.81 Encounter for therapeutic drug level monitoring; Z13.21 Encounter for screening for nutritional disorder
CPT/HCPCS: 80076; 82306; 80164; 84443; 85025

== ENCOUNTER 2020-11-29 13:30 | Outpatient (REF) | payer SELFPAY ==
[2020-11-29 16:11] LABS: Abs Immature Grans 0.04 10^3/uL (0.0-0.06); Absolute Basophil Count 0.12 10^3/uL (0.0-0.2); Absolute Eosinophil Count 0.28 10^3/uL (0.0-0.7); Absolute Lymphocyte Count 4.61 10^3/uL (1.2-3.4); Absolute Monocyte Count 0.99 10^3/uL (0.1-0.8); Absolute Neutrophil Count 4.08 10^3/uL (1.2-6.7); Basophils % 1.2; Eosinophils % 2.8; HGB 13.3 g/dL (11.2-15.7); Immature Grans % 0.4; Lymphocytes % 45.6; MCH 30.4 pg (27.0-33.0); MCHC 34.1 % (32.0-36.0); MPV 10.5 fL (8.0-11.0); Monocytes % 9.8; Neutrophils % 40.2; Nucleated RBC 0 %; Platelet Count 350 10^3/uL (130-400); RBC 4.38 10^6/uL (3.93-5.22); RDW-SD 45.2 fL; WBC 10.12 10^3/uL (4.4-10.8)
[2020-11-29 17:18] LABS: VALPROIC ACID 81.9 ug/mL (50-100)
[2020-11-30 09:30] LABS: ALT 17 U/L (14-59); AST 14 U/L (15-37)
== END 2020-11-29 13:31 | disposition home or self-care (01) ==
LOC: NCHCN 13:30
PROVIDERS: PCP Physician Assistant Medical; Visit Provider Physician Assistant Medical
DX: F31.30 Bipolar disorder, current episode depressed, mild or moderate severity, unspecified (principal); Z51.81 Encounter for therapeutic drug level monitoring; Z79.899 Other long term (current) drug therapy
CPT/HCPCS: 80164; 84450; 84460; 85025

== ENCOUNTER 2021-07-03 19:59 | Outpatient (REF) | payer SELFPAY ==
[2021-07-05 12:05] LABS: COVID-19 RT-PCR UVMMC Result Positive (Negative)
== END 2021-07-03 20:00 | disposition home or self-care (01) ==
LOC: NCHCN 19:59
PROVIDERS: PCP Physician Assistant Medical; Visit Provider Physician Assistant Medical
DX: Z20.822 Contact with and (suspected) exposure to COVID-19 (principal); J06.9 Acute upper respiratory infection, unspecified
CPT/HCPCS: U0003

== ENCOUNTER 2021-12-01 13:07 | Outpatient (REF) | payer SELFPAY ==
[2021-12-01 15:16] LABS: VALPROIC ACID 83.2 ug/mL
== END 2021-12-01 13:08 | disposition home or self-care (01) ==
LOC: NCHCN 13:07
PROVIDERS: PCP Physician Assistant Medical; Visit Provider Nurse Practitioner Psychiatric/Mental Health
DX: F31.89 Other bipolar disorder; Z51.81 Encounter for therapeutic drug level monitoring
CPT/HCPCS: 80164

== ENCOUNTER 2022-05-30 15:57 | Outpatient (REF) | payer SELFPAY ==
[2022-06-01 10:50] LABS: COVID-19 RT-PCR UVMMC Result Negative (Negative)
== END 2022-05-30 15:58 | disposition home or self-care (01) ==
LOC: LBN 15:57
PROVIDERS: PCP Physician Assistant Medical; Visit Provider Physician Assistant Medical
DX: Z20.822 Contact with and (suspected) exposure to COVID-19 (principal); J06.9 Acute upper respiratory infection, unspecified
CPT/HCPCS: U0003; 87081

== ENCOUNTER 2023-03-12 12:13 | Outpatient (REF) | payer MEDICARE, SELFPAY ==
--- NOTE | 2023-03-12 10:15 | PAPFT_PTH ---
PATIENT: Mary Vasquez V LOC: [facility]#:[id number] AGE/SX: 47/F ROOM: RE03/12/[address]: Giovana Patel : 1975 BED: DIS: 03/12/2023 SPEC #: [id number] RECD: 03/12/23 18:24 STATUS: ZACHARY REQ #: [id number] WILLIE: 03/12/23 10:[address]: Giovana Patel DEPT: [facility] Cytology RECD BY: Brenad Alonzo Tissues: 1 - CX/ENDOCX FOR PAP SMEARS Procedures: PAP THIN PREP/UVM Screening HPV DNA PROBE Comments: [id number]
[2023-03-12 21:00] LABS: VALPROIC ACID 50.9 ug/mL
[2023-03-12 21:11] LABS: ALT 19 U/L (14-59); AST 18 U/L (15-37); Albumin 3.6 g/dL (3.4-5.0); Alkaline Phosphatase 56 U/L (46-116); Anion Gap 10.6 mmol/L (3-11); BUN 3 mg/dL (7-18); Bilirubin, Total 0.3 mg/dL (0.2-1.0); CO2 25.4 mmol/L (21.0-32.0); CREATININE 0.9 mg/dL (0.55-1.02); Calcium 8.9 mg/dL (8.5-10.1); Calculated LDL 111 mg/dL (<100); Chloride 103 mmol/L (98-107); Cholesterol 196 mg/dL (<200); Estimated GFR 80.34 (mL/min/1.73m2); Glucose 82 mg/dL (74-106); HDL Cholesterol 58 mg/dL (40-60); Sodium 139 mmol/L (136-145); TSH (W/Ref FT4) 2.34 uIU/mL (0.36-3.74); Total Protein 6.7 g/dL (6.4-8.2); Triglyceride 135 mg/dL (<150)
== END 2023-03-12 12:14 | disposition home or self-care (01) ==
LOC: NCHCN 12:13
PROVIDERS: PCP Physician Assistant Medical; Visit Provider Physician Assistant Medical
DX: Z12.4 Encounter for screening for malignant neoplasm of cervix (principal); Z00.8 Encounter for other general examination; Z11.51 Encounter for screening for human papillomavirus (HPV); F31.30 Bipolar disorder, current episode depressed, mild or moderate severity, unspecified
CPT/HCPCS: 80053; 80061; 88142; 80164; 84443; 87624

== ENCOUNTER → 2023-03-20 01:03 | Outpatient (CLI) | payer MEDICARE, SELFPAY ==
--- NOTE | 2023-03-20 | DI.MAMMO_ITS ---
Exam(s) MAMMO SCREENING EXAM: MAMMO SCREENING CLINICAL HISTORY: SCREENING, Z12.31 TECHNIQUE: Mammograms were interpreted according to the usual protocol including computer analysis w Lat49 CAD system, tomosynthesis and C-view imaging. COMPARISON: No exams were available for comparison. Baseline examination. FINDINGS: The breasts are composed of scattered fibroglandular densities, Breast Density category B. No suspicious masses or suspicious microcalcifications are seen. No skin thickening or abnormal axillary lymph nodes are seen. IMPRESSION: BI-RADS Category 1, Negative mammogram Yearly screening mammography is recommended. Breast Density - Category B, scattered fibroglandular densities. A negative radiographic report should not delay biopsy if a dominant or clinically suspicious mass is present. Up to ten percent of cancers are not identified on mammography. A negative report may reinforce clinical impression. Adenosis and dense breasts may obscure an underlying neoplasm. False positive reports average 6 to 10%. Patient will receive a letter notifying them of these results.
--- NOTE | 2023-03-20 | DI.RAD_ITS ---
Exam(s) XR CHEST 2V PA LATERAL EXAM: XR CHEST 2V PA LATERAL CLINICAL HISTORY: COUGH, R05.8 TECHNIQUE: 2D digital imaging was performed. COMPARISON: CR CHEST 2 VIEWS PA,LAT from 10/28/2009 FINDINGS: HEART: Normal size. Aorta: Not dilated. PULMONARY VASCULATURE: Normal. LUNGS: Clear. PLEURAL SPACE: No pleural effusion or pneumothorax. BONE:Unremarkable for age. IMPRESSION: No acute abnormality. DATA REPOSITORY: RADIATION DOSE DELIVERED:
== END ==
PROVIDERS: PCP Physician Assistant Medical; Visit Provider Physician Assistant Medical
DX: Z12.31 Encounter for screening mammogram for malignant neoplasm of breast (principal); R05.8 Other specified cough
CPT/HCPCS: 77063; 77067; 71046

== ENCOUNTER 2024-04-16 17:48 | Outpatient (REF) | payer MEDICARE, SELFPAY ==
[2024-04-16 16:43] LABS: Abs Immature Grans 0.04 10^3/uL (0.0-0.06); Absolute Basophil Count 0.12 10^3/uL (0.0-0.2); Absolute Eosinophil Count 0.21 10^3/uL (0.0-0.7); Absolute Lymphocyte Count 4.82 10^3/uL (1.2-3.4); Absolute Monocyte Count 0.89 10^3/uL (0.1-0.8); Basophils % 1.2 %; Eosinophils % 2.1 %; HCT 42.9 % (36.0-46.0); Immature Grans % 0.4 %; Lymphocytes % 48.8 %; MCH 31.3 pg (27.0-33.0); MCHC 32.6 % (32.0-36.0); MCV 96 fL (80-95); MPV 10.5 fL (8.0-11.0); Neutrophils % 38.5 %; Platelet Count 276 10^3/uL (130-400); RBC 4.48 10^6/uL (3.93-5.22); RDW 15.4 % (11.7-14.6); RDW-SD 54.5 fL; WBC 9.88 10^3/uL (4.4-10.8)
[2024-04-16 16:50] LABS: VALPROIC ACID 61.7 ug/mL
[2024-04-16 17:10] LABS: ALT 26 U/L (14-59); AST 16 U/L (15-37); Albumin 3.2 g/dL (3.4-5.0); Alkaline Phosphatase 60 U/L (46-116); Bilirubin, Direct 0.1 mg/dL (0.0-0.2); Bilirubin, Total 0.19 mg/dL (0.2-1.0); Glucose 87 mg/dL (74-106); Total Protein 6.4 g/dL (6.4-8.2); Vitamin D 25 Total 41.9 ng/mL (30-100)
[2024-04-16 17:29] LABS: Hemoglobin A1C 5.3 % (<5.7)
== END 2024-04-16 17:49 | disposition home or self-care (01) ==
LOC: NCHCN 17:48
PROVIDERS: PCP Physician Assistant Medical; Visit Provider Nurse Practitioner Psychiatric/Mental Health
DX: Z51.81 Encounter for therapeutic drug level monitoring (principal)
CPT/HCPCS: 80076; 82306; 82947; 80164; 83036; 85025

== ENCOUNTER 2024-11-28 07:50 | Observation (INO) | payer MEDICARE, SELFPAY ==
[2024-11-28] VITALS (54 sets, daily range): BP systolic 115–169; BP diastolic 65–103; PULSE 69–213; RESP 10–31; TEMP 36.5–36.8; O2SAT 93–99
--- NOTE | 2024-11-28 07:45 | RT.EKG_ITS ---
APPROVED REPORT Exam: Resting ECG Reason for Exam: chest pain, sob Patient Location: E HR:203 bpm ECG Measurements Heart Rate 203 AXIS [place] 82 P 134 QRSd 84 QRS 80 QT 248 T 251 QTc 456 Conclusion Supraventricular tachycardia 203 no stemi
--- NOTE | 2024-11-28 08:00 | DI.RAD_ITS ---
Exam(s) XR PORTABLE CHEST AP EXAM: XR PORTABLE CHEST AP CLINICAL HISTORY: Chest pain TECHNIQUE: 2D digital imaging was performed of the chest. One image was obtained. An AP view was ob tained. COMPARISON: CR XR CHEST 2V PA LATERAL from 03/20/2023 FINDINGS: MEDIASTINUM: Normal. HEART: Normal. PULMONARY VASCULATURE: Normal. LUNGS: Clear. PLEURAL SPACE: No pleural effusion or pneumothorax. BONE:Within normal limits for the patient's age. OTHER FINDINGS:Normal. IMPRESSION: No acute pulmonary findings. DATA REPOSITORY: RADIATION DOSE DELIVERED:
--- NOTE | 2024-11-28 08:00 | RT.EKG_ITS ---
APPROVED REPORT Exam: Resting ECG Reason for Exam: Repeat after adenosine Patient Location: E HR:94 bpm ECG Measurements Heart Rate 94 AXIS NC 130 P 50 QRSd 93 QRS 81 QT 348 T 94 QTc 436 Conclusion Sinus rhythm [address] depression no stemi
--- NOTE | 2024-11-28 08:02 | ED.GENADUL_ITS ---
Discharge Plan Disposition Patient Disposition: Admit to [facility] Condition: Stable Discharge Details Clinical Impression: SVT (supraventricular tachycardia), Chest pain, Elevated troponin I level Admit Date/Time: 11/28/24 12:37 Admit Provider: Lex Dubon Attending Provider: Lex Dubon Primary Care Provider: Giovana Patel ED Provider: Kathy Maldonado General Mode of arrival: ambulatory . Date/Time Provider Initiated Documentation: 11/28/24 08:01 . Limitations to Documentation: no limitations . Information obtained by: patient, RN notes reviewed and old records reviewed . HPI Narrative: 49-year-old female presents to the ER with a chief complaint of chest tightness and shortness of breath that began around 630 this morning. She noticed that her heart rate was high. She presents with a heart rate of 204 and SVT, she reports that this is never happened to her before. Has a past medical history of depression and fibromyalgia. Does not take aspirin on a daily basis. She is alert and oriented x 3 blood pressure 115/99. Related Data Home Medications ?Medication ?Instructions ?Recorded ?Confirmed omeprazole 20 mg capsule,delayed 20 mg PO DAILY 05/04/13 11/28/24 release (Prilosec) promethazine 25 mg tablet 25 mg PO DAILY PRN 12/28/18 11/28/24 divalproex 500 mg tablet,extended 1,500 mg PO DAILY 11/28/24 11/28/24 release 24 hr melatonin 3 mg tablet 3 mg PO HS PRN 11/28/24 11/28/24 quetiapine 300 mg tablet 300 mg PO QHS 11/28/24 11/28/24 Allergies Allergy/AdvReac Type Severity Reaction Status Date / Time NSAIDS (Non-Steroidal Allergy Intermediate GI upset Unverified 11/28/24 08:01 Anti-Inflamma General Stated Complaint: Chest Pain ESTRELLA: 2 Review of Systems All systems reviewed & are unremarkable except as noted in HPI and below Cardiovascular Cardiovascular: Reports chest pain, Reports rapid heart rate and Reports dyspnea Respiratory Respiratory: Reports dyspnea Exam Narrative Exam Narrative: Constitutional: Alert and oriented x3. Appears stated age. Normal body habitus. Head: Normocephalic, no trauma. Eyes: Pupils PERRL, Red reflex noted, EOM's intact. Eyelids symmetrical without lesions, discharge, or swelling. Chest: Heart rate shows rate of 200, narrow QRS complexes, initial EKG shows SVT. Patient is complaining of midsternal chest tightness. Resp: Lungs clear to auscultation bilaterally, no wheezes, rales, or rhonchi. Abdomen: Soft, non-distended, Normoactive bowel sounds all 4 quads. Musculoskeletal: Normal gait, Moves all 4 extremities without difficulty. Skin: No suspicious rashes or lesions. Capillary refill less than 2 sec. Neurologic: Cranial nerves II-XII intact. Alert and oriented x 3. Motor: No deficits noted. Sensory: Intact bilaterally all 4 extremities. Hematologic/Lymphatic: No ecchymosis, no lymphadenopathy. Course Vital Signs Vital signs: Vital Signs Pulse 213 H 11/28/24 07:54 Respiratory Rate 17 11/28/24 07:54 Blood Pressure 117/103 H 11/28/24 07:54 Pulse Oximetry 98 11/28/24 07:54 Pulse 213 H 11/28/24 07:54 Respiratory Rate 17 11/28/24 07:54 Blood Pressure 117/103 H 11/28/24 07:54 Blood Pressure Position Sitting 11/28/24 07:54 Pulse Oximetry 98 11/28/24 07:54 Oxygen Delivery Method Room Air 11/28/24 07:54 Oxygen Flow Rate 0 11/28/24 07:54 Pain Level 4 11/28/24 07:54 Medical Decision Making 49-year-old female presents to the ER with a chief complaint of chest tightness and shortness of breath that began around 630 this morning. She noticed that her heart rate was high. She presents with a heart rate of 204 and SVT, she reports that this is never happened to her before. Has a past medical history of depression and fibromyalgia. Does not take aspirin on a daily basis. She is alert and oriented x 3 blood pressure 115/99. EKG was reviewed by Dr. Orozco and myself ER attending, SVT at a rate of 200, no old EKG available for review. Cardiac workup ordered, patient moved to a bigger room was placed on the monitor, valsalval maneuvers attempted which were unsuccessful in converting patient., Will give 6 mg of adenosine. At bedside for administration of adenosine patient placed on pacer pads. 08 12: Patient has converted back to sinus rhythm with 1 administration of 6 mg of adenosine fast IVP. Repeat EKG performed. Patient's blood pressure is 125/81. She reports that she still has mild chest tightness. Appears to be in normal sinus rhythm. Patient hemodynamically stable continue to monitor and observe. Cardiac workup is pending at this time. Repeat EKG shows some ST depressions in the anterior lateral leads. 0900: Informed by clinical staff anesthesiologist that patient is complaining of 1 out of 10 midsternal chest pain. She did initially present with radiation up into her neck which has resolved. She did receive 324 mg of chewable aspirin, will give 0.4 mg of sublingual nitroglycerin. Initial troponin is within normal limits and has resulted at 14, awaiting serial troponins. Informed by clinical staff anesthesiologist that the nitroglycerin resolved patient's chest pain is 0. 10:00: Repeat EKG shows normal sinus rhythm and ST depressions have resolved. Third 3-hour troponin is elevated at 79, patient continues to have no further chest pain. I did recommend admission at this point due to the elevation of the troponin and the ST depressions initially on EKG after the SVT conversion. Patient verbalized understanding and is in agreement with the plan. Spoke with Dr. Huertas who is on for hospitalist he agrees to accept patient for admission he does recommend a urine drug screen which the order was placed. Patient reports that she is a smoker and endorses marijuana use she also did ask the staff for some coffee which was declined at this time. Patient was transported up to the floor in hemodynamically stable condition she remained chest pain-free throughout the remainder of her stay here in the ER. This text was generated using [employer] dictation system, please disregard any oddities of phrase or misspellings. Medical Records Medical records reviewed: Yes I reviewed the patient's medical records. Lab Data Lab results reviewed: Yes I reviewed the patient's lab results. Labs: Laboratory Tests Range/Units 11/28/24 11/28/24 11/28/24 08:03 08:58 10:58 WBC (4.4-10.8) 10^3/uL 10.55 RBC (3.93-5.22) 10^6/uL 5.20 Hgb (11.2-15.7) g/dL 17.1 H Hct (36.0-46.0) % 50.3 H MCV (80-95) fL 97 H MCH (27.0-33.0) pg 32.9 MCHC (32.0-36.0) % 34.0 RDW (11.7-14.6) % 14.4 Plt Count (130-400) 10^3/uL 249 MPV (8.0-11.0) fL 9.7 Immature Gran % % 0.4 Neutrophils % % 39.5 Lymphocytes % % 48.4 Monocytes % % 8.8 Eosinophils % % 1.6 Basophils % % 1.3 Nucleated RBC % (0.0-0.3) % 0.0 Absolute Neutrophils (1.2-6.7) 10^3/uL 4.16 Absolute Lymphocytes (1.2-3.4) 10^3/uL 5.11 H Absolute Monocytes (0.1-0.8) 10^3/uL 0.93 H Absolute Eosinophils (0.0-0.7) 10^3/uL 0.17 Absolute Basophils (0.0-0.2) 10^3/uL 0.14 RBC Morphology Normal PT (9.1-11.1) sec 10.3 INR (0.9-1.1) 1.0 APTT (20.6-30.2) sec 27.4 Sodium (136-145) mmol/L 144 Potassium (3.5-5.1) mmol/L 3.9 Chloride (98-107) mmol/L 106 Carbon Dioxide (21.0-32.0) mmol/L 25.8 Anion Gap (3-11) mmol/L 12.2 H BUN (7-18) mg/dL 6 L Creatinine (0.55-1.02) mg/dL 0.8 Est GFR (CKD-EPI 2020) (mL/min/1.73m2) 91.40 Glucose (74-106) mg/dL 98 Calcium (8.5-10.1) mg/dL 10.0 Total Bilirubin (0.2-1.0) mg/dL 0.4 AST (15-37) U/L 40 H ALT (14-59) U/L 64 H Alkaline Phosphatase (46-116) U/L 77 Troponin I (<or=51) ng/L 14 29 79 H* Total Protein (6.4-8.2) g/dL 7.3 Albumin (3.4-5.0) g/dL 3.5 ECG Data Prior ECG tracings: not available for review Quality:SDOH Health Related Social Needs: No Data to Display Critical Care Time Critical Care Time Critical Care Time: Yes Total Critical Care Time: 35 Attestation: I spent greater than 35 minutes addressing this patient's acute life threatening illness. This time was spent engaged in actions directly related to the patient's care. Failure to initiate these interventions would have likely resulted in clinically significant or life threatening deterioration in the patients condition. PFSH All Active Problems (Updated 11/28/24 @ 13:04 by XAVI HERNANDEZ) Elevated troponin I level (Acute) Chest pain (Acute) SVT (supraventricular tachycardia) (Chronic) Medical History (Updated 11/28/24 @ 13:04 by XAVI HERNANDEZ) Depression Fibromyalgia Social History Smoking/Tobacco Use Status: Current every day Tobacco Type: cigarettes Smoking risk assessment performed?: Yes Alcohol Intake: current Alcohol Intake frequency: holidays/special occasions only Alcohol type: other Drug use: Daily Substance use type: former substance user and marijuana Details: daily THC Do you feel safe at home: Yes Do you feel safe in your relationship?: Yes Additional Social history: wants to hurt self. PAWSS Have you Been Recently Intoxicated or Drunk Within the Last 30 days?: No Have you Ever Experienced Previous Episodes of Alcohol Withdrawal?: No Have you ever Experienced Withdrawal Seizures?: No Have you ever Experienced Delirium Tremens(DT)s?: No Have you ever undergone Alcohol Rehabilitation Treatment (i.e, inpt ot outpatient treatment programs)?: No Have you ever Experienced Blackouts?: No Have you ever Combined Alcohol with other Downers within the last 90 days?: No Have you ever Combined Alcohol with any other Substance of Abuse during the last 90 days?: No Result: 0
[2024-11-28] MEDS: Adenosine 6 MG/2 ML VIAL IVP (08:07)
[2024-11-28] MEDS: Normal Saline 500 ML 1000 ML IV (08:09)
--- NOTE | 2024-11-28 08:09 | W.EDPROG ---
Date of service: 11/28/24 Time of Service: 08:10 Medical Decision Making Patient seen in conjunction with the nurse practitioner. [id number] provided by me secondary to medical complexity. Patient presented with chest pain. Was determined to be in SVT. EKG interpreted: SVT 203. Patient moved emergently to resuscitation room and placed on general ophthalmologist. Blood pressure stable. Failed Valsalva maneuvers. IV adenosine given and this resulted in resolution of SVT with return to normal sinus rhythm. Repeat EKG independently interpreted: Sinus [address] segment depression without reciprocal elevation. No prior for comparison. First troponin negative Quality:SDOH Health Related Social Needs: No Data to Display Discharge Plan Discharge Details Chief Complaint: Chest Pain Primary Care Provider: Giovana Patel ED Provider: Kathy Maldonado Home Meds and New Rx's Prescriptions: No Action omeprazole [Prilosec] 20 MG capsule,delayed release(DR/EC) 20 mg PO DAILY quetiapine 300 mg tablet 300 mg PO QHS Patient Comments: TAKE ONE TABLET BY MOUTH AT BEDTIME FOR MOOD DISORDER divalproex 500 mg tablet extended release 24 hr 1,500 mg PO DAILY Patient Comments: TAKE 3 TABLETS BY MOUTH EVERY EVENING melatonin 3 mg tablet 3 mg PO HS PRN Patient Comments: TAKE 1-2 TABLETS BY MOUTH AT BEDTIME NEEDED FOR INSOMNIA promethazine 25 mg Tablet 25 mg PO DAILY PRN Rx Instructions: 20-25 mg patient states she is not sure. Patient states she takes this PRN
[2024-11-28 08:11] LABS: Abs Immature Grans 0.04 10^3/uL (0.0-0.06); Absolute Basophil Count 0.14 10^3/uL (0.0-0.2); Absolute Eosinophil Count 0.17 10^3/uL (0.0-0.7); Absolute Lymphocyte Count 5.11 10^3/uL (1.2-3.4); Absolute Monocyte Count 0.93 10^3/uL (0.1-0.8); Absolute Neutrophil Count 4.16 10^3/uL (1.2-6.7); Basophils % 1.3 %; Eosinophils % 1.6 %; HCT 50.3 % (36.0-46.0); HGB 17.1 g/dL (11.2-15.7); Immature Grans % 0.4 %; Lymphocytes % 48.4 %; MCH 32.9 pg (27.0-33.0); MCV 97 fL (80-95); MPV 9.7 fL (8.0-11.0); Monocytes % 8.8 %; Neutrophils % 39.5 %; Platelet Count 249 10^3/uL (130-400); RDW 14.4 % (11.7-14.6); RDW-SD 51.4 fL; WBC 10.55 10^3/uL (4.4-10.8)
[2024-11-28] MEDS: Aspirin 81 MG CHEW 324 MG CH (08:18)
[2024-11-28 08:25] LABS: Diff Comment Diff Reviewed; RBC Morphology Normal
[2024-11-28 08:31] LABS: ALT 64 U/L (14-59); AST 40 U/L (15-37); Albumin 3.5 g/dL (3.4-5.0); Alkaline Phosphatase 77 U/L (46-116); Anion Gap 12.2 mmol/L (3-11); BUN 6 mg/dL (7-18); Bilirubin, Total 0.4 mg/dL (0.2-1.0); CO2 25.8 mmol/L (21.0-32.0); CREATININE 0.8 mg/dL (0.55-1.02); Chloride 106 mmol/L (98-107); Glucose 98 mg/dL (74-106); PTT Activated 27.4 sec (20.6-30.2); Potassium 3.9 mmol/L (3.5-5.1); Prothrombin Time 10.3 sec (9.1-11.1); Sodium 144 mmol/L (136-145); Total Protein 7.3 g/dL (6.4-8.2); Troponin I 14 ng/L (<or=51)
[2024-11-28] MEDS: nitroGLYcerin 0.4 MG TAB SL (09:07)
[2024-11-28 09:27] LABS: Troponin I 29 ng/L (<or=51)
--- NOTE | 2024-11-28 09:30 | RT.EKG_ITS ---
APPROVED REPORT Exam: Resting ECG Reason for Exam: Repeat, Chest pain Patient Location: E HR:80 bpm ECG Measurements Heart Rate 80 AXIS DE 126 P 34 QRSd 93 QRS 50 QT 376 T 45 QTc 435 Conclusion Sinus rhythm 80 normal axis no stemi
[2024-11-28 11:41] LABS: Troponin I 79 ng/L (<or=51)
--- NOTE | 2024-11-28 12:26 | W.PM.HP.N ---
Date of service: 11/28/24 Time of Service: 12:26 Assessment and Plan Assessment and plan (1) SVT (supraventricular tachycardia): Status: Chronic Assessment and plan: On presentation and as per EKG finding with conversion to sinus rhythm with 1 dose of milligram of adenosine as per HPI Will initiate metoprolol 12.5 p.o. Q6 and convert to succinate formulation prior to discharge tolerated Telemetry monitoring Outpatient cardiology referral Echocardiogram as an outpatient (2) Elevated troponin I level: Status: Acute Assessment and plan: Initial troponin negative x 2 then troponin #3 and 4 were positive Expecting down-trending troponin at 6 hours 1700 troponin pending (3) Chest pain: Status: Acute Assessment and plan: Will continue to monitor no further chest pain recurrence on admission to the floor and as per HPI ASA 325 administered in the ED Will hold ASA for now (4) Depression: Assessment and plan: Continue outpatient management (5) Fibromyalgia: Assessment and plan: Continue outpatient management (6) Nicotine dependence: Status: Acute Assessment and plan: Patient declined smoking cessation NRT as needed (7) On deep vein thrombosis (DVT) prophylaxis: Status: Acute Assessment and plan: On Lovenox Discussed with Dr. Dubon History of Present Illness History of Present Illness Chief Complaint: SVT, chest pain Narrative: This 49 years old female patient with past medical history of borderline personality disorder, bipolar, depression and fibromyalgia presented to the ED for evaluation of chest tightness, shortness of breath, racing heart sensation starting around 630 this morning; also reported nausea, dizziness. As per EKG the patient was in SVT heart rate 203; adenosine 6 mg IV administered with with conversion to sinus rhythm with resolution of symptoms.Recurrence of chest pain treated with sublingual nitro x 1. Troponin #3 was positive at 79, repeat EKG showed sinus rhythm heart rate 80 with no signs of coronary occlusion or ischemia. Blood work was unremarkable and chest x-ray was negative. The patient was admitted to the medical surgical floor by the hospitalist service for SVT, ACS symptoms, elevated troponin. The patient confirmed full CODE STATUS. The patient confirmed resolution of nausea and dizziness, denied headache, fevers, chills, shortness of breath, chest pain, GI symptoms, dysuria. Reports using THC but no other illicit drugs. Reports drinking 4 large alcoholic drinks last night with 4% alcohol, daily drinks 1 of those. Declined smoking cessation and nicotine patch. Review of Systems All systems reviewed & are unremarkable except as noted in HPI and below PFSH All Active Problems (Updated 11/28/24 @ 17:28 by Paige Wilkinson APRN) Nicotine dependence (Acute) On deep vein thrombosis (DVT) prophylaxis (Acute) Elevated troponin I level (Acute) Chest pain (Acute) SVT (supraventricular tachycardia) (Chronic) Medical History (Updated 11/28/24 @ 17:28 by Paige Wilkinson APRN) Depression Fibromyalgia Social History Smoking/Tobacco Use Status: Current every day Tobacco Type: cigarettes Smoking risk assessment performed?: Yes Alcohol Intake: current Alcohol Intake frequency: holidays/special occasions only Alcohol type: other Drug use: Daily Substance use type: former substance user and marijuana Details: daily THC Housing: other Do you feel safe at home: Yes Do you feel safe in your relationship?: Yes Additional Social history: wants to hurt self. Meds Allergies and Home Medications Allergies Allergy/AdvReac Type Severity Reaction Status Date / Time NSAIDS (Non-Steroidal Allergy Intermediate GI upset Unverified 11/28/24 08:01 Anti-Inflamma Home Medications ?Medication ?Instructions ?Recorded ?Confirmed ?Type omeprazole 20 mg capsule,delayed 20 mg PO DAILY 05/04/13 11/28/24 History release (Prilosec) promethazine 25 mg tablet 25 mg PO DAILY PRN 12/28/18 11/28/24 History divalproex 500 mg tablet,extended 1,500 mg PO DAILY 11/28/24 11/28/24 History release 24 hr melatonin 3 mg tablet 3 mg PO HS PRN 11/28/24 11/28/24 History quetiapine 300 mg tablet 300 mg PO QHS 11/28/24 11/28/24 History Results Labs 11/28/24 08:03 11/28/24 08:03 Labs: Laboratory Results - last 24 hr 11/28/24 11/28/24 11/28/24 08:03 08:58 10:58 WBC 10.55 RBC 5.20 Hgb 17.1 H Hct 50.3 H MCV 97 H MCH 32.9 MCHC 34.0 RDW 14.4 Plt Count 249 MPV 9.7 Immature Gran % 0.4 Neutrophils % 39.5 Lymphocytes % 48.4 Monocytes % 8.8 Eosinophils % 1.6 Basophils % 1.3 Nucleated RBC % 0.0 Absolute Neutrophils 4.16 Absolute Lymphocytes 5.11 H Absolute Monocytes 0.93 H Absolute Eosinophils 0.17 Absolute Basophils 0.14 RBC Morphology Normal PT 10.3 INR 1.0 APTT 27.4 Sodium 144 Potassium 3.9 Chloride 106 Carbon Dioxide 25.8 Anion Gap 12.2 H BUN 6 L Creatinine 0.8 Est GFR (CKD-EPI 2020) 91.40 Glucose 98 Calcium 10.0 Total Bilirubin 0.4 AST 40 H ALT 64 H Alkaline Phosphatase 77 Troponin I 14 29 79 H* Total Protein 7.3 Albumin 3.5 Last Vital Signs Pulse 84 11/28/24 11:50 Resp 16 11/28/24 11:50 BP 134/77 11/28/24 10:45 Pulse Ox 96 11/28/24 11:50 PAWSS Have you Been Recently Intoxicated or Drunk Within the Last 30 days?: No Have you Ever Experienced Previous Episodes of Alcohol Withdrawal?: No Have you ever Experienced Withdrawal Seizures?: No Have you ever Experienced Delirium Tremens(DT)s?: No Have you ever undergone Alcohol Rehabilitation Treatment (i.e, inpt ot outpatient treatment programs)?: No Have you ever Experienced Blackouts?: No Have you ever Combined Alcohol with other Downers within the last 90 days?: No Have you ever Combined Alcohol with any other Substance of Abuse during the last 90 days?: No Result: 0 Time Spent Time spent with Patient: >75 minutes Time was spent: preparing to see the patient(eg.review tests), obtaining and/or reviewing separately otained hiistory, ordering medications,tests, procedures, referring, communicating with other health disabilities caregiver, indepentently interpreting results, counseling the patient and care coordination
[2024-11-28 12:44] LABS: *AMPHETAMINES SCREEN URINE Negative (Negative); *BARBITURATES SCREEN URINE Negative (Negative); *BENZODIAZEPINES SCREEN URINE Negative (Negative); Cannabinoids THC Positive (Negative); Cocaine Screen,Urine Negative (Negative); METHADONE URINE SCREEN Negative (Negative); OPIATES URINE SCREEN Negative (Negative)
[2024-11-28 12:49] LABS: Tricyclic Antidepressants Positive (Negative)
--- NOTE | 2024-11-28 13:44 | PHA.REVIEW2 ---
Pharmacy Admission Review Admission Clinical Review Admission Pharmacy Review: NSAIDS (Non-Steroidal Anti-Inflamma Allergy (Intermediate, Unverified 11/28/24 08:01) GI upset Resuscitation Status Full Code Height 5 ft Weight 70.76 kg Pharmacy Admission Review Renal Dosing Renal Dosing: BUN 6 mg/dL (7-18) L 11/28/24 08:03 Creatinine 0.8 mg/dL (0.55-1.02) 11/28/24 08:03 Medications needing adjustments: Reviewed (CrCl 76.31 mL/min) List of meds needing interventions: Current medications are okay Anticoagulation Anticoagulation: Hgb 17.1 g/dL (11.2-15.7) H 11/28/24 08:03 Hct 50.3 % (36.0-46.0) H 11/28/24 08:03 Plt Count 249 10^3/uL (130-400) 11/28/24 08:03 INR 1.0 (0.9-1.1) 11/28/24 08:03 Creatinine 0.8 mg/dL (0.55-1.02) 11/28/24 08:03 DVT Prophylaxis: Reviewed Medications: Enoxaparin (40mg daily) Relevant Labs Relevant Labs: Sodium 144 mmol/L (136-145) 11/28/24 08:03 Potassium 3.9 mmol/L (3.5-5.1) 11/28/24 08:03 Chloride 106 mmol/L (98-107) 11/28/24 08:03 Electrolytes, C-Reactive P, ESR: Reviewed (AST/ALT 40/64) Cardiac Review Cardiac Review: Troponin I Cancelled 11/28/24 15:39 BP, HR, EF%: Reviewed (HR and BP WNL) QTc Review QTc: Reviewed (EKG report pending) IV to PO Switch IV Medications: Reviewed Home Meds Home Med List reviewed: Reviewed Current Meds Current Medication Order Review: Reviewed
--- NOTE | 2024-11-28 13:48 | W.PC.ACHO ---
Registration Status: Primary Language: Preferred Language: ED Information & Data Chief Complaint Chest Pain 11/28/24 08:03 Triage Note Racing heart, SOB- started 11/28/24 07:54 at 0630 this morning- never experienced this before- denies cardiac history Medical / Surgical History (Last Updated 01/01/19 @ 01:50 by Kacey Montenegro) Depression Fibromyalgia Most Recent Vital Signs Temperature 36.7 C 11/28/24 13:09 Pulse 75 11/28/24 13:09 Pulse Rhythm Regular 11/28/24 13:09 Pulse 80 11/28/24 12:50 Respiratory Rate 16 11/28/24 13:09 Respiratory Effort Normal 11/28/24 13:09 Respiratory Depth Normal 11/28/24 13:09 Respiratory Pattern Normal 11/28/24 13:09 Blood Pressure 127/84 11/28/24 13:09 Blood Pressure Mean 110 11/28/24 12:16 Blood Pressure Position Sitting 11/28/24 07:54 Pulse Oximetry 99 11/28/24 13:09 Oxygen Delivery Method Room Air 11/28/24 13:09 Oxygen Flow Rate 0 11/28/24 13:09 Pain Level 0 11/28/24 13:09 Allergies NSAIDS (Non-Steroidal Anti-Inflamma Allergy (Intermediate, Unverified 11/28/24 08:01) GI upset Precautions Isolation Standard precaution 11/28/24 07:59 IV IV Catheter Type [Right Saline Lock Antecubital] IV Catheter Gauge [Right 18 Antecubital] Diet Orders Category Date Time Status Heart Healthy Eating [DIET] Nutrition 11/28/24 Lunch Active Diagnostics 11/28/24 11/28/24 11/28/24 Range/Units 17:00 15:39 14:00 WBC (4.4-10.8) 10^3/uL RBC (3.93-5.22) 10^6/uL Hgb (11.2-15.7) g/dL Hct (36.0-46.0) % MCV (80-95) fL MCH (27.0-33.0) pg MCHC (32.0-36.0) % RDW (11.7-14.6) % Plt Count (130-400) 10^3/uL MPV (8.0-11.0) fL Immature Gran % % Neutrophils % % Lymphocytes % % Monocytes % % Eosinophils % % Basophils % % Nucleated RBC % (0.0-0.3) % Absolute Neutrophils (1.2-6.7) 10^3/uL Absolute Lymphocytes (1.2-3.4) 10^3/uL Absolute Monocytes (0.1-0.8) 10^3/uL Absolute Eosinophils (0.0-0.7) 10^3/uL Absolute Basophils (0.0-0.2) 10^3/uL RBC Morphology PT (9.1-11.1) sec INR (0.9-1.1) APTT (20.6-30.2) sec Sodium (136-145) mmol/L Potassium (3.5-5.1) mmol/L Chloride (98-107) mmol/L Carbon Dioxide (21.0-32.0) mmol/L Anion Gap (3-11) mmol/L BUN (7-18) mg/dL Creatinine (0.55-1.02) mg/dL Est GFR (CKD-EPI 2020) (mL/min/1.73m2) Glucose (74-106) mg/dL Calcium (8.5-10.1) mg/dL Magnesium Total Bilirubin (0.2-1.0) mg/dL AST (15-37) U/L ALT (14-59) U/L Alkaline Phosphatase (46-116) U/L Troponin I Pending Cancelled Pending (<or=51) ng/L Total Protein (6.4-8.2) g/dL Albumin (3.4-5.0) g/dL Urine Opiates Screen (Negative) Urine Methadone Screen (Negative) Ur Barbiturates Screen (Negative) Ur Tricyclics Screen (Negative) Ur Amphetamines Screen (Negative) U Benzodiazepines Scrn (Negative) Urine Cocaine Screen (Negative) Ur THC Screen (Negative) 11/28/24 11/28/24 11/28/24 Range/Units 12:37 12:18 10:58 WBC (4.4-10.8) 10^3/uL RBC (3.93-5.22) 10^6/uL Hgb (11.2-15.7) g/dL Hct (36.0-46.0) % MCV (80-95) fL MCH (27.0-33.0) pg MCHC (32.0-36.0) % RDW (11.7-14.6) % Plt Count (130-400) 10^3/uL MPV (8.0-11.0) fL Immature Gran % % Neutrophils % % Lymphocytes % % Monocytes % % Eosinophils % % Basophils % % Nucleated RBC % (0.0-0.3) % Absolute Neutrophils (1.2-6.7) 10^3/uL Absolute Lymphocytes (1.2-3.4) 10^3/uL Absolute Monocytes (0.1-0.8) 10^3/uL Absolute Eosinophils (0.0-0.7) 10^3/uL Absolute Basophils (0.0-0.2) 10^3/uL RBC Morphology PT (9.1-11.1) sec INR (0.9-1.1) APTT (20.6-30.2) sec Sodium (136-145) mmol/L Potassium (3.5-5.1) mmol/L Chloride (98-107) mmol/L Carbon Dioxide (21.0-32.0) mmol/L Anion Gap (3-11) mmol/L BUN (7-18) mg/dL Creatinine (0.55-1.02) mg/dL Est GFR (CKD-EPI 2020) (mL/min/1.73m2) Glucose (74-106) mg/dL Calcium (8.5-10.1) mg/dL Magnesium Pending Total Bilirubin (0.2-1.0) mg/dL AST (15-37) U/L ALT (14-59) U/L Alkaline Phosphatase (46-116) U/L Troponin I 79 H* (<or=51) ng/L Total Protein (6.4-8.2) g/dL Albumin (3.4-5.0) g/dL Urine Opiates Screen Negative (Negative) Urine Methadone Screen Negative (Negative) Ur Barbiturates Screen Negative (Negative) Ur Tricyclics Screen Positive A (Negative) Ur Amphetamines Screen Negative (Negative) U Benzodiazepines Scrn Negative (Negative) Urine Cocaine Screen Negative (Negative) Ur THC Screen Positive A (Negative) 11/28/24 11/28/24 Range/Units 08:58 08:03 WBC 10.55 (4.4-10.8) 10^3/uL RBC 5.20 (3.93-5.22) 10^6/uL Hgb 17.1 H (11.2-15.7) g/dL Hct 50.3 H (36.0-46.0) % MCV 97 H (80-95) fL MCH 32.9 (27.0-33.0) pg MCHC 34.0 (32.0-36.0) % RDW 14.4 (11.7-14.6) % Plt Count 249 (130-400) 10^3/uL MPV 9.7 (8.0-11.0) fL Immature Gran % 0.4 % Neutrophils % 39.5 % Lymphocytes % 48.4 % Monocytes % 8.8 % Eosinophils % 1.6 % Basophils % 1.3 % Nucleated RBC % 0.0 (0.0-0.3) % Absolute Neutrophils 4.16 (1.2-6.7) 10^3/uL Absolute Lymphocytes 5.11 H (1.2-3.4) 10^3/uL Absolute Monocytes 0.93 H (0.1-0.8) 10^3/uL Absolute Eosinophils 0.17 (0.0-0.7) 10^3/uL Absolute Basophils 0.14 (0.0-0.2) 10^3/uL RBC Morphology Normal PT 10.3 (9.1-11.1) sec INR 1.0 (0.9-1.1) APTT 27.4 (20.6-30.2) sec Sodium 144 (136-145) mmol/L Potassium 3.9 (3.5-5.1) mmol/L Chloride 106 (98-107) mmol/L Carbon Dioxide 25.8 (21.0-32.0) mmol/L Anion Gap 12.2 H (3-11) mmol/L BUN 6 L (7-18) mg/dL Creatinine 0.8 (0.55-1.02) mg/dL Est GFR (CKD-EPI 2020) 91.40 (mL/min/1.73m2) Glucose 98 (74-106) mg/dL Calcium 10.0 (8.5-10.1) mg/dL Magnesium Total Bilirubin 0.4 (0.2-1.0) mg/dL AST 40 H (15-37) U/L ALT 64 H (14-59) U/L Alkaline Phosphatase 77 (46-116) U/L Troponin I 29 14 (<or=51) ng/L Total Protein 7.3 (6.4-8.2) g/dL Albumin 3.5 (3.4-5.0) g/dL Urine Opiates Screen (Negative) Urine Methadone Screen (Negative) Ur Barbiturates Screen (Negative) Ur Tricyclics Screen (Negative) Ur Amphetamines Screen (Negative) U Benzodiazepines Scrn (Negative) Urine Cocaine Screen (Negative) Ur THC Screen (Negative) Intake and Output - 24 Hour Total 11/28/24 07:50 thru 11/28/24 13:09 Intake Total 500 Balance 500 Weight 70.76 kg Intake: IV 500 Other: Urine Appearance Clear Falls Risk Assessment History of Falls No History 11/28/24 13:09 Contributing Factors No Factors 11/28/24 13:09 Ambulatory Aids Independent 11/28/24 13:09 Tubes/Lines None 11/28/24 13:09 Gait Evaluation No gait disturbance 11/28/24 13:09 Cognition No cognitive impairment 11/28/24 13:09 Fall Total Score 0 11/28/24 13:09 Level of Risk Standard/Low Risk 11/28/24 13:09 v v v v v v v v v Sending and/or Receiving Nurses: Please use comment section below to note any information pertinent to the patient hand-off not included above. Information / Comments: Report received from: Hanh in ED at 12:53pm. Pt ambulating and voided in the ED. All chest pain has resolved. Pt admittd to M/S floor at 13:05pm
[2024-11-28 14:28] LABS: Magnesium 1.8 mg/dL (1.8-2.4)
[2024-11-28 14:40] LABS: Troponin I 94 ng/L (<or=51)
[2024-11-28 17:40] LABS: Troponin I 88 ng/L (<or=51)
[2024-11-28] MEDS: Enoxaparin 40 MG/0.4 ML SYR SC (18:10)
[2024-11-28] MEDS: Metoprolol 12.5 MG TAB PO (18:11)
[2024-11-28] MEDS: QUEtiapine 300 MG TAB PO (19:48)
[2024-11-28] MEDS: Normal Saline Flush 10 ML SYR IVP (19:48)
[2024-11-29] MEDS: Metoprolol 12.5 MG TAB PO ×3 (00:04→12:38)
[2024-11-29 04:29] VITALS: BP 134/74; PULSE 56; RESP 17; TEMP 36.4; O2SAT 96
[2024-11-29 07:19] LABS: Calculated LDL 107 mg/dL (<100); Cholesterol 192 mg/dL (<200); HDL Cholesterol 63 mg/dL (>or=50); Triglyceride 113 mg/dL (<150)
[2024-11-29] MEDS: Omeprazole 20 MG CAPCR PO (07:53)
[2024-11-29] MEDS: Divalproex Sodium 500 MG TAB.ER.24H 1500 MG PO (07:53)
--- NOTE | 2024-11-29 08:02 | NUR.NOTE ---
patient AxOx4 this AM, denies pain, VSS, on telemetry in sinus bradycardia 50s, asymptomatic, pt educated on metoprolol and arrhythmia. Patient independent in room, tolerating PO, physical assessment benign, received adenosine x1 in ED for SVT. Will continue to monitor. Hx of drinking but pt denies any previous withdrawal issues, refusing nicotine patch this AM. PIV intact. Call gates in reach, bed low/locked, waiting for breakfast. Nursing Note:
[2024-11-29 08:06] VITALS: BP 138/86; PULSE 58; RESP 18; TEMP 36.5; O2SAT 97
[2024-11-29] MEDS: Normal Saline Flush 10 ML SYR IVP (09:51)
--- NOTE | 2024-11-29 11:47 | DSE_ITS ---
Date of service: 11/29/24 Time of Service: 11:48 DS: Diagnosis Discharge Diagnosis (1) SVT (supraventricular tachycardia): Status: Chronic (2) Elevated troponin I level: Status: Acute (3) Chest pain: Status: Acute (4) Depression: (5) Fibromyalgia: (6) Nicotine dependence: Status: Acute Discharge Plan Disposition Patient Disposition: Home Condition: Improving Discharge Details Reason For Visit: SVT, ACS, elevated troponins Admit Date/Time: 11/28/24 12:37 Admit Provider: Lex Dubon Attending Provider: Lex Dubon Primary Care Provider: Giovana Patel Hospital Course Hospital Course: This is a 49-year-old female patient past medical history significant for borderline personality disorder, depression, fibromyalgia who presented to the emergency department after a sudden onset of chest tightness shortness of breath and palpitations. She also had associated nausea and dizziness. An EKG was performed she was found to be in SVT with heart rate of 200. She was given 6 mg of IV adenosine with conversion to normal sinus rhythm. She is still continue to have chest pain and was given 1 SL nitro. Troponins were trended and the third troponin came back positive at 79 and did remain elevated and flat. EKGs showed no acute ischemic EKG changes. She was started on Metroprolol tartrate and admitted to the hospitalist services for further management. She was monitored on telemetry and remained in normal sinus rhythm with a blood pressure of 138/86. She had no complaints in the morning. She was tolerating a regular diet. She will be discharged to home on metoprolol succinate 50 mg daily and will follow-up outpatient with her primary care provider and cardiology for further recommendations. She is being discharged to home with no new services discharge discussed with Dr. Garcia Home Meds and New Rx's Prescriptions: New metoprolol succinate 50 mg tablet extended release 24 hr 50 mg PO HS Qty: 30 0RF Continued omeprazole [Prilosec] 20 MG capsule,delayed release(DR/EC) 20 mg PO DAILY quetiapine 300 mg tablet 300 mg PO QHS Patient Comments: TAKE ONE TABLET BY MOUTH AT BEDTIME FOR MOOD DISORDER divalproex 500 mg tablet extended release 24 hr 1,500 mg PO DAILY Patient Comments: TAKE 3 TABLETS BY MOUTH EVERY EVENING melatonin 3 mg tablet 3 mg PO HS PRN Patient Comments: TAKE 1-2 TABLETS BY MOUTH AT BEDTIME NEEDED FOR INSOMNIA promethazine 25 mg Tablet 25 mg PO DAILY PRN Rx Instructions: 20-25 mg patient states she is not sure. Patient states she takes this PRN Discharge Instructions Instructions: Supraventricular tachycardia (SVT) Additional Instructions: take medication as prescribed monitor you heart rate daily and if have symptoms Stand Alone Forms: Nursing Discharge Form Referrals: Giovana Patel PA [Primary Care Provider] - (I called your PCP office, I left a voicemail for your PCP office to give you a call to make a follow up appointment for within 1 to 2 weeks.) Activity:: Activity as Tolerated Equipment/Supplies:: No Equipment Needed Diet:: Normal Diet Discharge Orders Discharge Orders: Discharge Order (Routine); Ordered 11/29/24 Ordered By: Cherrie Obrien Discharge Data Discharge Date/Time-TO BE ENTERED AT DEPARTURE: 11/29/24 12:49 DS: Summary Time Spent with Patient providing and/or coordinating discharge services: Greater than 30 minutes Status at Discharge Functional status at discharge: independent ambulation Overall status at discharge: patient is back to baseline Mental Status: mental status grossly normal Speech and Movement: speech and movement normal Mood: congruent mood Affect: normal affect Quality:SDOH Health Related Social Needs: No Data to Display Exam Narrative Exam Narrative: White female of stated age no acute distress head is atraumatic eyes nonicteric noninjected oral mucosa is moist neck supple full range of motion no JVD cardiovascular regular rate and rhythm no murmurs appreciated rate in the high 5 0s low 60s sinus rhythm on the media monitor. Respirations even and unlabored breath sounds are clear abdomen soft nontender moves all extremities equally no peripheral edema neurologic she is awake alert oriented no focal deficits psychiatric appropriate mood and affect Psych Mental Status: mental status grossly normal Speech and Movement: speech and movement normal Mood: congruent mood Affect: normal affect DS: Data Vitals/I&O Vitals and I&O: Vital Signs Temperature 36.5 C 11/29/24 08:06 Temperature Source Temporal Artery Scan 11/29/24 08:06 Pulse 58 L 11/29/24 08:06 Pulse Rhythm Regular 11/28/24 13:09 Pulse 80 11/28/24 12:50 Respiratory Rate 18 11/29/24 08:06 Respiratory Effort Normal 11/28/24 13:09 Respiratory Depth Normal 11/28/24 13:09 Respiratory Pattern Normal 11/28/24 13:09 Blood Pressure 138/86 11/29/24 08:06 Blood Pressure Mean 110 11/28/24 12:16 Blood Pressure Position Sitting 11/28/24 07:54 Pulse Oximetry 97 11/29/24 08:06 Oxygen Delivery Method Room Air 11/29/24 08:06 Oxygen Flow Rate 0 11/29/24 08:06 Pain Level 0 11/28/24 13:09 Intake & Output 11/28/24 11/28/24 11/29/24 11:59 23:59 11:59 Intake Total 500 / 510 10 / 510 300 / 300 Output Total 700 / 700 700 / 700 Balance 500 / -190 -690 / -190 -400 / -400 Weight 72.575 kg 70.76 kg Intake: IV 500 / 510 10 / 510 Oral 300 / 300 Output: Urine 700 / 700 700 / 700 Other: Urine Color Yellow Yellow Urine Appearance Cloudy Cloudy Urine Odor Normal Normal Data Completed and Pending Labs on day of discharge: Labs from last 24 hours 11/29/24 11/28/24 11/28/24 06:00 16:57 15:39 Magnesium Troponin I 88 H* Cancelled Triglycerides 113 Total Cholesterol 192 LDL Cholesterol, Calc 107 H HDL Cholesterol 63 H Urine Opiates Screen Urine Methadone Screen Ur Barbiturates Screen Ur Tricyclics Screen Ur Amphetamines Screen U Benzodiazepines Scrn Urine Cocaine Screen Ur THC Screen 11/28/24 11/28/24 14:10 12:18 Magnesium 1.8 Troponin I 94 H* Triglycerides Total Cholesterol LDL Cholesterol, Calc HDL Cholesterol Urine Opiates Screen Negative Urine Methadone Screen Negative Ur Barbiturates Screen Negative Ur Tricyclics Screen Positive A Ur Amphetamines Screen Negative U Benzodiazepines Scrn Negative Urine Cocaine Screen Negative Ur THC Screen Positive A PFSH All Active Problems (Updated 11/28/24 @ 17:28 by Paige Wilkinson APRN) Nicotine dependence (Acute) On deep vein thrombosis (DVT) prophylaxis (Acute) Elevated troponin I level (Acute) Chest pain (Acute) SVT (supraventricular tachycardia) (Chronic) Medical History (Updated 11/28/24 @ 17:28 by Paige Wilkinson APRN) Depression Fibromyalgia Social History Smoking/Tobacco Use Status: Current every day Tobacco Type: cigarettes Smoking risk assessment performed?: Yes Alcohol Intake: current Alcohol Intake frequency: holidays/special occasions only Alcohol type: other Drug use: Daily Substance use type: former substance user and marijuana Details: daily THC Housing: other Do you feel safe at home: Yes Do you feel safe in your relationship?: Yes Additional Social history: wants to hurt self. Time Spent with Patient Time Spent with Patient: 45-69 minutes Time was spent: preparing to see the patient(eg.review tests), obtaining and/or reviewing separately otained hiistory, ordering medications,tests, procedures, indepentently interpreting results and counseling the patient
--- NOTE | 2024-11-29 13:24 | NUR.NOTE ---
patient discharged to home by POV with spouse, PIV removed, all belongings packed up with patient, given script for toprol xl, instructed to start first dose tonight, educated on side effectd and use of this medication in light of recent SVT, pt has pulse ox at home and understands education with monitoring heart rate. Pt denies questions or concerns with the d/c education, f/u appointment pending with PCP and knows to call.Nursing Note:
== END 2024-11-29 12:49 | disposition home or self-care (01) ==
LOC: ER 12:01 → MS 13:04
PROVIDERS: Nurse Practitioner Acute Care; Admitting Provider Family Medicine; Emergency Provider Registered Nurse Emergency; PCP Physician Assistant Medical; Responsible Provider Nurse Practitioner Acute Care; Visit Provider Family Medicine
DX: I47.10 Supraventricular tachycardia, unspecified (principal); R07.89 Other chest pain; R06.02 Shortness of breath; R42 Dizziness and giddiness; R74.8 Abnormal levels of other serum enzymes; R11.0 Nausea; F32.9 Major depressive disorder, single episode, unspecified; M79.7 Fibromyalgia; F17.210 Nicotine dependence, cigarettes, uncomplicated; Z79.899 Other long term (current) drug therapy; F60.3 Borderline personality disorder
CPT/HCPCS: 00123; 36415; 80053; 80061; 80307; 93005; 96372; 96374; 99291; J1650; 71045; 83735; 84484; 85025; 85610; 85730; 93010; 99223; 99239; G0378; J0153; J3490

== ENCOUNTER 2024-12-17 13:47 | Outpatient (CLI) | payer MEDICARE, SELFPAY ==
--- NOTE | 2024-12-17 14:00 | RT.EKG_ITS ---
APPROVED REPORT Exam: Resting ECG Reason for Exam: SVT Patient Location: O HR:64 bpm ECG Measurements Heart Rate 64 AXIS RI 122 P 50 QRSd 101 QRS 44 QT 394 T 55 QTc 407 Conclusion Sinus rhythm...normal P axis, V-rate 50- 99 Probable left atrial enlargement...P Otherwise normal ECG
== END 2024-12-17 13:48 | disposition home or self-care (01) ==
LOC: DI.CARD 14:06
PROVIDERS: PCP Physician Assistant Medical; Referring Provider Physician Assistant Medical; Visit Provider Internal Medicine Cardiovascular Disease
DX: I47.10 Supraventricular tachycardia, unspecified (principal); R07.9 Chest pain, unspecified
CPT/HCPCS: 93010

== ENCOUNTER → 2024-12-17 13:47 | Outpatient (BNVA) | payer MEDICARE, SELFPAY | PROVIDERS: PCP Physician Assistant Medical; Referring Provider Physician Assistant Medical; Visit Provider Internal Medicine Cardiovascular Disease | DX: I47.10 Supraventricular tachycardia, unspecified (principal); R07.9 Chest pain, unspecified | CPT/HCPCS: 99214; 93005 ==

== ENCOUNTER 2025-01-05 11:42 | Outpatient (REF) | payer MEDICARE, SELFPAY ==
[2025-01-05 15:52] LABS: HGB 15.9 g/dL (11.2-15.7); MCH 32.7 pg (27.0-33.0); MCHC 33.1 % (32.0-36.0); MCV 99 fL (80-95); MPV 10.8 fL (8.0-11.0); Platelet Count 248 10^3/uL (130-400); RBC 4.86 10^6/uL (3.93-5.22); RDW-SD 50.9 fL; WBC 10.97 10^3/uL (4.4-10.8)
[2025-01-05 16:05] LABS: ALT 27 U/L (14-59); AST 20 U/L (15-37); Albumin 3.5 g/dL (3.4-5.0); Alkaline Phosphatase 78 U/L (46-116); Bilirubin, Direct 0.1 mg/dL (0.0-0.2); Bilirubin, Total 0.2 mg/dL (0.2-1.0); Total Protein 6.6 g/dL (6.4-8.2)
[2025-01-05 16:16] LABS: Absolute Eosinophil Count 0.33 10^3/uL (0.0-0.7); Absolute Monocyte Count 0.66 10^3/uL (0.1-0.8); Absolute Neutrophil Count 3.84 10^3/uL (1.2-6.7); Atypical Lymphocytes % 10 %
[2025-01-05 16:17] LABS: Absolute Lymphocyte Count 6.14 10^3/uL (1.2-3.4)
[2025-01-05 16:19] LABS: Diff Comment Manual Differential; RBC Morphology Normal
== END 2025-01-05 11:43 | disposition home or self-care (01) ==
LOC: NCHCN 11:42
PROVIDERS: PCP Physician Assistant Medical; Visit Provider Physician Assistant Medical
DX: D75.1 Secondary polycythemia (principal); R79.89 Other specified abnormal findings of blood chemistry
CPT/HCPCS: 80076; 85025

== ENCOUNTER 2025-01-14 01:02 | Outpatient (CLI) | payer MEDICARE, SELFPAY ==
--- NOTE | 2025-01-14 08:30 | DI.US_ITS ---
APPROVED REPORT EXAM: Comprehensive 2D, Doppler, and color-flow Echocardiogram Patient Location: Out-Patient Financial Analyst: Rasta Zheng RDCS (AE) Indications: Check LV function, SVT Other Information Study Quality: Adequate Conclusion Normal left ventricular wall thickness and chamber size. Ejection fraction is 55 to 60%. Wall motion is normal Normal right ventricular size and function Both atria are normal in size There are no structural valvular abnormalities Mild to moderate aortic regurgitation Estimated right ventricular systolic pressure is 26 mmHg Wall motion Left Ventricle The left ventricle is normal size. The left ventricular systolic function is normal. The left ventricular ejection fraction is within the normal range. There is normal left ventricular wall thickness. There is normal LV segmental wall motion. There is no ventricular septal defect visualized. LVEF is 55-60%. Right Ventricle The right ventricle is normal size. The right ventricular systolic function is normal. Atria The left atrium size is normal. The right atrium size is normal. The interatrial septum is intact with no evidence for an atrial septal defect. Aortic Valve The aortic valve is normal in structure. There is no aortic valvular stenosis. Mild to moderate aortic regurgitation. Mitral Valve The mitral valve is normal in structure. No evidence of mitral valve stenosis. Trace mitral regurgitation. Tricuspid Valve The tricuspid valve is normal in structure. There is no tricuspid valve stenosis. Trace to mild tricuspid regurgitation. The RVSP is 25.6mmHg. Pulmonic Valve The pulmonary valve is normal in structure. There is no pulmonic valvular stenosis. There is no pulmonic valvular regurgitation. Great Vessels The aortic root is normal in size. The ascending aorta is normal in size. Aortic arch is normal in caliber. IVC is normal in size and collapses >50% with inspiration. Pericardium There is no pericardial effusion. 2D Dimensions IVSD d PLAX 0.86 cm F: 0.6-1.0 Ao Root d 2.85 cm F: 2.7 - 3.3 LVPW d PLAX 0.88 cm F: 0.6 - 1.0 Ao Asc Diam d 3.18 cm F: 2.3 - 3.1 LVID d PLAX 4.54 cm F: 3.8 - 5.2 LVDs 3.18 cm F: 2.2 - 3.5 LV EF Teichholz 57.4 % FS 30.03 % LV EDV (Teich) 94.5 mL LV ESV (Teich) 40.3 mL Stroke Vol Index (Teich) 31.89 M-Mode TAPSE 2.04 cm (M/F) >1.7 Auto EF LV EDV A4C 94.6 mL LV EDV A2C 89.8 mL LV EDV BP 91.9 mL LV ESV A4C 41.6 mL LV ESV A2C 37.4 mL LV ESV BP 40.4 mL LVEF(%) A4C 56.0 % LVEF(%) A2C 58.4 % LVEF(%) BP 56.0 % LV SV A4C 53.0 ml LV SV A2C 52.5 ml LV SV BP 51.5 ml LV CO A4C 3.3 L/min LV CO A2C 2.9 L/min LV CO BP 3.1 L/min HR A4C 62.48 BPM HR A2C 55.22 BPM LV EDV Index (BP) LA Volume LA Length A4C 3.3 cm LA Length A2C 4.5 cm LA Area A4C s 5.75 cm2 LA Area A2C s 13.08 cm2 LA Vol A4C A-L 8.59 mL LA Vol A2C A-L 32.33 mL LA Vol Biplane A-L 19.6 mL LA Vol/BSA A4C A-L LA Vol/BSA A2C A-L LA Vol/BSA BP A-L 11.5 mL/m2 LA Vol A4C MOD 8.0 mL LA Vol A2C MOD 31.3 mL LA Vol BP MOD 18.5 mL RA Volume RA Area A4C 6.7 cm2 RA ESV A4C (A-L) 12.3mL RA Vol/BSA A4C A-L RA Length A4C 3.1 cm RA ESV A4C (MOD) 11.5mL LV Diastology MV E' medial 0.082 (>0.07 m/s) MV E Vmax 0.72 (0.4-1.3 m/s) MV E/E' MED 8.72 (<14) MV A Vmax 0.75 (0.4-1.3 m/s) MV E' lateral 0.090 (>0.1 m/s) E/A Ratio 1.0 MV E/E' LAT 7.92 (<14) MV E' Average 0.086 m/s MV E/E'(average) 8.30 Aortic Valve AoV Vmax 1.18 m/s LVOT Vmax 1.00 m/s AoV Peak Grad 29.8 mmHg LVOT Peak Grad 4.0 mmHg AoV Area (Vmax) 2.59 cm2 LVOT VTI 0.251 m AoV VTI 0.281 m LVOT Mean Grad 2.0 mmHg AoV Mean [place]. 0.78 m/s LVOT SV 76.81 mL AoV Mean Grad 2.8 mmHg LVOT Diam s 1.95 cm AoV Area (VTI) 2.74 cm2 AV Regurg Peak Gr. 5.59 mmHg Velocity Ratio 0.85 AR Decel Braxton 1.1m/sec2 AR DT 3282 msec AR PHT 952 msec AR Vmax 3.67 m/s Mitral Valve MV DT 192 (160-240 msec) Pulmonary Valve PV Vmax 0.68 (0.5-1.5 m/s) RVOT Vmax 0.62 m/s PV Peak Grad 1.9 mmHg RVOT Peak Gr. 1.5 mmHg PV Mean [place] 0.54 m/s RVOT VTI 0.141 m PV Mean Grad 1.3 mmHg RVOT Mean Gr. 0.9 mmHg Tricuspid Valve RA Pressure 3.00 mmHg TR Vmax 2.38 m/s TR Peak Grad 22.5 mmHg RVSP (TR) 25.6 mmHg
== END 2025-01-14 01:22 ==
LOC: DI 01:02
PROVIDERS: PCP Physician Assistant Medical; Visit Provider Internal Medicine Cardiovascular Disease
DX: I47.10 Supraventricular tachycardia, unspecified (principal)
CPT/HCPCS: 93306

== ENCOUNTER → 2025-03-18 09:55 | Outpatient (BNVA) | payer MEDICARE, SELFPAY | PROVIDERS: PCP Physician Assistant Medical; Referring Provider Physician Assistant Medical; Visit Provider Internal Medicine Cardiovascular Disease | DX: I47.10 Supraventricular tachycardia, unspecified (principal); I35.1 Nonrheumatic aortic (valve) insufficiency | CPT/HCPCS: 99213; 99214 ==

== ENCOUNTER 2025-04-06 15:46 | Outpatient (REF) | payer MEDICARE, SELFPAY ==
[2025-04-06 16:39] LABS: Abs Immature Grans 0.02 10^3/uL (0.0-0.06); HCT 46.0 % (36.0-46.0); HGB 15.5 g/dL (11.2-15.7); Immature Grans % 0.2 %; MCH 32.4 pg (27.0-33.0); MCHC 33.7 % (32.0-36.0); MCV 96 fL (80-95); MPV 10.3 fL (8.0-11.0); Platelet Count 213 10^3/uL (130-400); RBC 4.78 10^6/uL (3.93-5.22); RDW 13.5 % (11.7-14.6); RDW-SD 48.3 fL; WBC 8.02 10^3/uL (4.4-10.8)
[2025-04-06 17:08] LABS: ALT 41 U/L (14-59); AST 43 U/L (15-37); Albumin 3.6 g/dL (3.4-5.0); Alkaline Phosphatase 71 U/L (46-116); Anion Gap 11.4 mmol/L (3-11); BUN 4 mg/dL (7-18); Bilirubin, Total 0.5 mg/dL (0.2-1.0); CO2 23.6 mmol/L (21.0-32.0); Calcium 9.3 mg/dL (8.5-10.1); Chloride 103 mmol/L (98-107); Estimated GFR 69.49 (mL/min/1.73m2); Glucose 139 mg/dL (74-106); Potassium 4.4 mmol/L (3.5-5.1); Sodium 138 mmol/L (136-145); TSH 2.30 uIU/mL (0.36-3.74); Total Protein 6.9 g/dL (6.4-8.2)
== END 2025-04-06 15:47 | disposition home or self-care (01) ==
LOC: NCHCN 15:46
PROVIDERS: PCP Physician Assistant Medical; Visit Provider Physician Assistant Medical
DX: F39 Unspecified mood [affective] disorder (principal); R79.89 Other specified abnormal findings of blood chemistry; D75.1 Secondary polycythemia; L65.9 Nonscarring hair loss, unspecified
CPT/HCPCS: 80053; 80164; 84439; 84443; 85025

== ENCOUNTER 2025-04-16 03:44 | Outpatient (CLI) | payer MEDICARE, SELFPAY ==
--- NOTE | 2025-04-16 09:00 | DI.MAMMO_ITS ---
Exam(s) MAMMO SCREENING EXAM: MAMMO SCREENING CLINICAL HISTORY: SCREENIG MAMMO Z12.31. TECHNIQUE: Bilateral full field digital CC and MLO mammographic images were obtained with 3D tomosynthesis and utilizing computer aided detection (CAD). COMPARISON: Prior baseline mammogram of March 2023 was reviewed. FINDINGS: Nodular density in the upper-outer quadrant of the right breast is unchanged from baseline mammogram of 2 years ago. This is probably benign intramammary lymph node. In the left breast there is a small group of microcalcifications which may be associated with the small nodule, this group located 4 cm in from the nipple on the MLO view. Further imaging recommended. There is no new significant architectural distortion nor skin thickening-retraction. IMPRESSION: Left breast microcalcification group which may be associated with a small nodule. Spot compression 2D Mag and 3D non Mag additional views are recommended. Also recommend breast ultrasound. BI-RADS Category 0 - Incomplete: Need additional imaging evaluation Breast Density - Category B - There are scattered areas of fibroglandular density. Breast density Category C or D implies that the patient has dense breast tissue. Dense breast tissue can make it harder to find cancer on a mammogram. Dense breast tissue is also associated with an increased risk of breast cancer. This information about the result of the mammogram report was provided to the patient to raise their awareness. Use this report when you speak with the patient about their risks for breast cancer, which includes their family history. At that time, you may recommend additional screening tests (Ultrasound or MRI) as these tests may add significant information. A negative radiographic report should not delay biopsy if a dominant or clinically suspicious mass is present. Up to ten percent of cancers are not identified on mammography. A negative report may reinforce clinical impression. Adenosis and dense breasts may obscure an underlying neoplasm. False positive reports average 6 to 10%. Patient will receive a letter notifying them of these results.
== END 2025-04-16 04:04 ==
LOC: DI 03:44
PROVIDERS: PCP Physician Assistant Medical; Visit Provider Physician Assistant Medical
DX: Z12.31 Encounter for screening mammogram for malignant neoplasm of breast (principal); N63.11 Unspecified lump in the right breast, upper outer quadrant
CPT/HCPCS: 77063; 77067

== ENCOUNTER 2025-04-28 01:49 | Outpatient (CLI) | payer MEDICARE, SELFPAY ==
--- NOTE | 2025-04-28 | DI.US_ITS ---
Exam(s) US ABDOMEN LIMITED EXAM: US ABDOMEN LIMITED CLINICAL HISTORY: ABNL FINDINGS BLOOD CHEMISTRY R79.89 LIVER TECHNIQUE: Ultrasound abdomen performed using standard protocol. COMPARISON: No exams were available for comparison FINDINGS: PANCREAS: Normal where visualized. LIVER: There is diffuse increased echogenicity of the liver. This is consistent with fatty infiltration of the liver. Hepatopetal flow in the Portal Vein. The liver measures in 16.9 cm length. No evidence of a hepatic mass. GALLBLADDER: No evidence of cholelithiasis. No evidence of wall thickening. No pericholecystic fluid identified. BILIARY SYSTEM: Common bile duct measures < 7 mm. No intrahepatic biliary ductal dilation. TORRES'S SIGN: Negative. RIGHT KIDNEY: Kidney is normal in size. No evidence of renal calculi. No evidence of hydronephrosis. No renal mass or cyst identified. ASCITES: None seen. IMPRESSION: Hepatic steatosis. DATA REPOSITORY:
== END 2025-04-28 02:09 ==
PROVIDERS: PCP Physician Assistant Medical; Visit Provider Physician Assistant Medical
DX: K76.0 Fatty (change of) liver, not elsewhere classified (principal)
CPT/HCPCS: 76705

== ENCOUNTER 2025-04-29 01:49 | Outpatient (CLI) | payer MEDICARE, SELFPAY ==
--- NOTE | 2025-04-29 | DI.MAMMO_ITS ---
Exam(s) MAMMO SCREEN CALL BACK UNI EXAM: MAMMO SCREEN CALL BACK UNI LEFT INDICATION: LEFT MICROCALCIFICATION GROUP, MAY BE ASSOCIATED W/ SMALL NODULE R92.8 ABNL. COMPARISON: [facility] MAMMO SCREENING from 04/16/2025 and 2022 TECHNIQUE: Spot compression views with tomosynthesis as well as magnification cc and MLO views were performed breast. FINDINGS: There is no evidence of a nodule. There is a grouping of rounded calcifications in the upper outer quadrant which have a benign appearance. They are unchanged in appearance from 2022. IMPRESSION: No mammographic evidence of malignancy. BI-RADS Category 2 - Benign Findings Breast Density - Category B - There are scattered areas of fibroglandular density. Breast density Category C or D implies that the patient has dense breast tissue. Dense breast tissue can make it harder to find cancer on a mammogram. Dense breast tissue is also associated with an increased risk of breast cancer. This information about the result of the mammogram report was provided to the patient to raise their awareness. Use this report when you speak with the patient about their risks for breast cancer, which includes their family history. At that time, you may recommend additional screening tests (Ultrasound or MRI) as these tests may add significant information. A negative radiographic report should not delay biopsy if a dominant or clinically suspicious mass is present. Up to ten percent of cancers are not identified on mammography. A negative report may reinforce clinical impression. Adenosis and dense breasts may obscure an underlying neoplasm. False positive reports average 6 to 10%. Patient will receive a letter notifying them of these results.
== END 2025-04-29 02:09 ==
LOC: DI 01:50
PROVIDERS: PCP Physician Assistant Medical; Visit Provider Physician Assistant Medical
DX: Z12.31 Encounter for screening mammogram for malignant neoplasm of breast (principal)
CPT/HCPCS: 77063; 77067

== ENCOUNTER → 2025-06-03 11:07 | Outpatient (BNVA) | payer MEDICARE, SELFPAY | PROVIDERS: PCP Physician Assistant Medical; Referring Provider Physician Assistant Medical; Visit Provider Physical Therapy Assistant | DX: Z12.11 Encounter for screening for malignant neoplasm of colon (principal) | CPT/HCPCS: S0285 ==

== ENCOUNTER 2025-06-16 09:11 | Day surgery (SDC) | payer MEDICARE, SELFPAY ==
[2025-06-16] VITALS (7 sets, daily range): BP systolic 116–155; BP diastolic 66–86; PULSE 64–77; RESP 14–19; TEMP 36.1–36.6; O2SAT 97–100; BMI 32.1
[2025-06-16] MEDS: Lactated Ringers 1,000 ML 80 ML IV (09:50)
--- NOTE | 2025-06-16 10:53 | W.ANESPRE ---
General Info Date of Service Date Performed: 06/16/25 Height: 5 ft Weight: 74.6 kg Body Mass Index (BMI): 32.1 Surgical Procedure: Operation Date: 06/16/25 10:50 Proposed Procedure Side Surgeon p Colonoscopy Acacia Cordero MD Actual Procedure Side Surgeon p Colonoscopy Not Applicable Acacia Cordero MD Meds Allergies and Home Medications Allergies Allergy/AdvReac Type Severity Reaction Status Date / Time NSAIDS (Non-Steroidal Allergy Intermediate GI upset Unverified 06/16/25 09:28 Anti-Inflamma Home Medication Medication Instructions Recorded omeprazole 20 mg capsule,delayed 20 mg PO DAILY 05/04/13 release (Prilosec) promethazine 25 mg tablet 25 mg PO DAILY PRN 12/28/18 divalproex 500 mg tablet,extended 1,500 mg PO DAILY 11/28/24 release 24 hr quetiapine 300 mg tablet 300 mg PO QHS 11/28/24 metoprolol succinate 50 mg 50 mg PO HS #30 tabs 11/29/24 tablet,extended release 24 hr acetylcysteine 600 mg capsule 1,200 mg PO BID PRN 12/14/24 biotin 1 mg tablet 1 mg PO DAILY 12/14/24 cholecalciferol (vitamin D3) 25 25 mcg PO DAILY 12/14/24 mcg (1,000 unit) capsule cyclobenzaprine 5 mg tablet 5 mg PO QHS 12/14/24 bisacodyl 5 mg tablet,delayed 5 mg PO ONCE #4 tabs 06/03/25 release (Dulcolax (bisacodyl)) melatonin 3 mg tablet 6 mg PO HS PRN 06/03/25 polyethylene glycol 3350 17 17 g PO ONCE #238 grams 06/03/25 gram/dose oral powder Current Visit Medications: Current Medications Generic Name Dose Route Start Last Admin Trade Name Freq PRN Reason Stop Dose Admin Ringer's Solution 1,000 mls @ 80 mls/hr 06/16/25 06:00 06/16/25 09:50 IV 06/16/25 23:59 80 mls/hr INFUSION LAWRENCE Administration IV Miscellaneous Supplies 1 each 06/16/25 06:00 Iv Access IV 06/16/25 23:59 DIRECTED LAWRENCE Sodium Chloride 0 ml 06/16/25 06:00 Normal Saline Flush 10 Ml Syr IV 06/16/25 23:59 PRN PRN Sodium Chloride 0 ml 06/16/25 06:00 Normal Saline 10 Ml Vial IJ 06/16/25 23:59 DIRECTED PRN Sterile Water 0 ml 06/16/25 06:00 Water,Injection,Sterile 10 Ml Vial IJ 06/16/25 23:59 DIRECTED PRN PFSH Active Problems Active Problems: Problem Status Onset Code Aortic regurgitation Acute I35.1 Bipolar affective disorder Acute F31.9 Chronic migraine without aura Acute G43.709 GERD with apnea without esophagitis Acute K21.9, R06.81 Post traumatic stress disorder Acute F43.10 Obesity Chronic E66.9 SVT (supraventricular tachycardia) Chronic I47.10 Medical History Medical History Nicotine dependence Depression Fibromyalgia Tobacco Smoking/Tobacco Use Status: Current every day Tobacco Type: cigarettes Alcohol Alcohol Intake: current Alcohol intake frequency: a few times a week Alcohol type: other Substance Use Substance use: Daily Substance use type: former substance user and marijuana Details: daily THC (smoke, vape, edibles) Vital Signs and Lab Results Vital Signs Most Recent Vital Signs in EMR: Most Recent Vital Signs Temp Pulse Resp BP Pulse Ox 36.4 C L 65 16 125/86 98 06/16/25 09:32 06/16/25 09:32 06/16/25 09:32 06/16/25 09:32 06/16/25 09:32 Point of Care Results Point of Care Results: POC- Test(urine) Negative 06/16/25 09:49 Imaging and Studies Imaging and Studies Study information below may be from another EMR and interpreted by another provider. Please see original notes in EMR for more complete details. EKG Summary: 12/17/24: NSR Echocardiogram Summary: 01/14/25: Conclusion Normal left ventricular wall thickness and chamber size. Ejection fraction is 55 to 60%. Wall motion is normal Normal right ventricular size and function Both atria are normal in size There are no structural valvular abnormalities Mild to moderate aortic regurgitation Estimated right ventricular systolic pressure is 26 mmHg Anesthesia Assessment and Plan Anesthesia History Personal History: No History of Anesthesia Complications Family History: No Family History of Anesthesia Complications Exercise Tolerance Exercise Tolerance: Metabolic Equivalents>4 Pertinent Negatives Pertinent Negatives: No Major Cardiovascular Symptoms or Complaints and No Major Pulmonary Symptoms or Complaints Cardiac & Pulmonary Exam Cardiac Exam: Normal S1/S2 Heart Sounds Pulmonary Exam: Clear Bilateral Breath Sounds Implantable Cardiac Device Does patient have a Pacemaker or an ICD?: No Airway Exam Known Difficult Airway: No Mallampati Class: 2 Mouth Opening: Normal (> 3cm) Thyromental Distance: Greater than 3 cm Neck Range of Motion: Full ROM Neck Circumference: Normal Teeth Condition: Normal Dentition ASA Classification ASA Score: ASA 2 Emergency Case?: No NPO Status NPO Status: NPO Clears >2 hours, Solids >8 hours Status Status: Negative HCG Anesthesia Plan Resuscitation Status: Full Code Anesthesia Technique: General Anesthesia Airway Planned: Natural Airway Monitors Used: Standard Monitors
--- NOTE | 2025-06-16 11:24 | BOWEL_PTH ---
PATIENT: Mary Vasquez V LOC: [facility] U#:[id number] AGE/SX: 50/F ROOM: RE06/16/[address]: Acacia Cordero : 1975 BED: DIS: 06/16/2025 SPEC #: [id number] RECD: 06/16/25 12:44 STATUS: ZACHARY RE #: [id number] WILLIE: 06/16/25 11:[address]: Acacia Cordero DEPT: Surgical Specimen RECD BY: Brenda Alonzo ENTERED: 06/16/25 12:45 SP TYPE: Bowel OTHR DR: Giovana Patel Tissues: 1 - BIOPSY BOWEL 2 - BIOPSY BOWEL Procedures: GROSS AND MICRO LEVEL 4 Comments: [id number]
--- NOTE | 2025-06-16 11:42 | W.PM.DSUDISC ---
Date of service: 06/16/25 Discharge Plan Disposition Patient Disposition: Home Discharge Details Reason For Visit: Screening colonoscopy Attending Provider: Acacia Cordero Primary Care Provider: Giovana Patel Recommendations for Follow Up Recommended tests to be ordered by follow up provider: Follow up pathology Home Meds and New Rx's Prescriptions: Continued acetylcysteine 600 mg capsule 1,200 mg PO BID PRN biotin 1 mg tablet 1 mg PO DAILY cyclobenzaprine 5 mg tablet 5 mg PO QHS cholecalciferol (vitamin D3) 25 mcg (1,000 unit) capsule 25 mcg PO DAILY omeprazole [Prilosec] 20 MG capsule,delayed release(DR/EC) 20 mg PO DAILY quetiapine 300 mg tablet 300 mg PO QHS Patient Comments: TAKE ONE TABLET BY MOUTH AT BEDTIME FOR MOOD DISORDER divalproex 500 mg tablet extended release 24 hr 1,500 mg PO DAILY Patient Comments: TAKE 3 TABLETS BY MOUTH EVERY EVENING metoprolol succinate 50 mg tablet extended release 24 hr 50 mg PO HS Qty: 30 0RF melatonin 3 mg tablet 6 mg PO HS PRN Patient Comments: TAKE 1-2 TABLETS BY MOUTH AT BEDTIME NEEDED FOR INSOMNIA promethazine 25 mg Tablet 25 mg PO DAILY PRN Rx Instructions: 20-25 mg patient states she is not sure. Patient states she takes this PRN Discontinued bisacodyl [Dulcolax (bisacodyl)] 5 mg tablet,delayed release (DR/EC) 5 mg PO ONCE Qty: 4 0RF Rx Instructions: Take per colonoscopy instructions provided by ordering providers office polyethylene glycol 3350 17 gram/dose powder 17 g PO ONCE Qty: 238 0RF Rx Instructions: Take per colonoscopy instructions provided by ordering providers office Discharge Instructions Instructions: Colon polyps Additional Instructions: Your colonoscopy went well today. You had two small polyps which were removed and sent to pathology. We will contact you once these results return and provide recommendations on when to have a repeat colonoscopy. You also had evidence of diverticulosis or small outpouchings of the colon. Please contact the Surgery office if you have any questions or concerns. 1. If tolerated, consume a soft, low fiber diet for 1-2 days. [address] Do not drive, drink alcohol, operate machinery, make critical decisions, or do activities that require coordination or balance for 24 hours. 3. Because air was put into your colon during the procedure, expelling air from your rectum (passing gas or farting) is normal. 4. You may not have a bowel movement for 1-3 days because of the colonoscopy prep. This is normal. 5. Go directly to the emergency room if you notice any of the following: Develop chills (warm to touch), or if you have a thermometer and your temperature is above 101 Difficulty breathing or difficultly swallowing Persistent vomiting Severe abdominal pain, other than gas cramps Severe chest pain Black, tarry stools Any bleeding – exceeding one tablespoon 6. Call your physician if the site where your intravenous was started becomes red, swollen, painful, and warm to touch. 7. Your physician has reviewed your pre-procedure medications. Please continue to take those medications as previously ordered. You will be given specific information/education regarding any changes to your medications before leaving. Stand Alone Forms: Anesthesia Discharge Inst., [place] (DSU), Portal Information Activity:: Activity as Tolerated Diet:: As Tolerated Discharge Orders Discharge Orders: Discharge Order (Routine); Ordered 06/16/25 Ordered By: Acacia Cordero
--- NOTE | 2025-06-16 11:45 | COLE_ITS ---
Date of service: 06/16/25 Time of Service: 11:45 Colonoscopy Report Date of procedure: 06/16/25 Pre-op diagnosis general: Screening colonoscopy Post-op diagnosis procedure note: other (Screening colonoscopy, colon polyps ) Procedure: Colonoscopy with polypectomy. Surgeon: Acacia Cordero Anesthesia Type: General:No Airway Estimated blood loss (mL): 2 Pathology: other (Colon polyp at 65cm, colon polyp at 25cm ) Complications: None Disposition: PACU Indications: Patient is a 50yo female who presents for a screening colonoscopy. She denies any changes in bowel habits. Prep: Miralax/Dulcolax Procedure Start Time: 11:00 Procedure End Time: 11:34 Retraction Time: 17 Findings: Colon polyp at 65cm removed with cold forceps. Colon polyp at 25cm removed with cold forceps. Mild sigmoid diverticulosis. Procedure Description: The patient was brought to the endoscopy suite and placed in the left lateral decubitus position. After induction of IV sedation, a digital rectal exam was performed. Digital exam was normal. The colonoscope was then passed to the cecum without difficulty. Cecal intubation was confirmed by the identification of the appendiceal orifice and the ileocecal valve. Upon withdrawing the colonoscope, all mucosal surfaces were inspected. The prep was noted to be adequate. At 65cm, there was a small polyp, which was removed using cold forceps in its entirety. At 25cm there was a small polyp which was removed using cold forceps. Specimens were retrieved for pathological analysis. There was no other evidence of mucosal abnormality, polyp or cancer. There was some evidence of mild diverticulosis of the sigmoid colon. Retroflexion in the rectum was unremarkable.The patient tolerated the procedure well with no complications. Postoperatively, the patient was transferred to the recovery room in stable condition. [place] Bowel Prep [place] Bowel Prep Right Colon: 3 Left Colon: 3 Transverse Colon: 3 Total Score: 9
--- NOTE | 2025-06-16 12:34 | W.ANESPOSTOP ---
Postoperative Evaluation Date, Time and Location Date Performed: 06/16/25 Time Performed: 12:30 Patient Location: Day Surgery Unit Vital Signs Most Recent Imported Vital Signs: Most Recent Vital Signs Temp Pulse Resp BP Pulse Ox 36.1 C L 64 14 127/68 97 06/16/25 12:29 06/16/25 12:29 06/16/25 12:29 06/16/25 12:29 06/16/25 12:29 Pain Score Most Recent Pain Score: Most Recent Pain Score Pain Level 0 06/16/25 12:29 Assessment Mental Status: Awake (Alert & Oriented to Patient Baseline) Airway and Respiratory Function: Patent airway with normal (patient baseline) respiratory exam Cardiovascular Function: Hemodynamically Stable Hydration Status: Adequately Hydrated Nausea & Vomiting: No Nausea or Vomiting Pain: Pt. Denies Any Pain Peripheral Nerve Block: Patient did not receive a nerve block Postoperative Comments:: Patient informed of reported itching of face during initiation of anesthesia. Reports she is doing well now and has no tongue swelling or itching.
== END 2025-06-16 12:43 | disposition home or self-care (01) ==
PROVIDERS: PCP Physician Assistant Medical; Visit Provider Student in an Organized Health Care Education/Training Program
PROC: 0DJD8ZZ Inspection of Lower Intestinal Tract, Via Natural or Artificial Opening Endoscopic (ICD-10-PCS; CPT 45378; principal; 2025-06-16 10:45)
DX: Z12.11 Encounter for screening for malignant neoplasm of colon (principal); D12.4 Benign neoplasm of descending colon; D12.5 Benign neoplasm of sigmoid colon; K57.30 Diverticulosis of large intestine without perforation or abscess without bleeding
CPT/HCPCS: 45380; 81025; 88305; J2003; J2250; J2704